=== PATIENT | female | born 1955 | race African-American/Black ===

== ENCOUNTER 2025-02-12 09:57 | Inpatient (IN) | payer MEDICARE, MEDICAID ==
[~2025-02-12] VITALS: Ht 167.6 cm; Wt 95.4 kg
--- NOTE | 2025-02-12 11:09 | ED.PDOC ---
GI ASSESSMENT HPI Comments 69 y/o F, with PMHx of HTN presents to the ED for CC of abdominal pain. Patient states, she has been experiencing epigastric abdominal pain that radiates down into her pelvic area [id number]. Patient reports, that she was seen at [facility] for SS [id number] ago and was told to have a UTI and a uterine fibroid. Patient relays, symptoms have persisted since last hospital visit. Patient describes abdominal pain as numbness and tingling. Patient denies flank pain, back pain, hematuria, nausea, vomiting, or diarrhea. No other symptoms or modifying factors are present at this time. 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 Family History Family History: Unknown Social History Smoker: Non-Smoker Alcohol: Denies ETOH Use Drugs: Denies Drug Use Lives In: Home Constitutional: denies: chills, diaphoresis, fatigue, fever, malaise, sweats, weakness, others EENTM: denies: blurred vision, double vision, ear bleeding, ear discharge, ear drainage, ear pain, ear ringing, eye pain, eye redness, hearing loss, mouth pain, mouth swelling, nasal discharge, nose bleeding, nose congestion, nose pain, photophobia, tearing, throat pain, throat swelling, voice changes, others Respiratory: denies: cough, hemoptysis, orthopnea, SOB at rest, shortness of breath, SOB with excertion, stridor, wheezing, others Cardiovascular: denies: chest pain, dizzy spells, diaphoresis, Dyspnea on exertion, edema, irregular heart beat, left arm pain, lightheadedness, palpitations, PND, syncope, others Gastrointestinal: reports: abdominal pain; denies: abdomen distended, blood streaked bowels, constipated, diarrhea, dysphagia, difficulty swallowing, hematemesis, melena, nausea, poor appetite, poor fluid intake, rectal bleeding, rectal pain, vomiting, others Genitourinary: denies: abnormal vagina bleeding, burning, dyspareunia, dysuria, flank pain, frequency, hematuria, incontinence, pain, , vagina discharge, urgency, others Neurological: denies: dizziness, fainting, headache, left sided numbness, left sided weakness, numbness, paresthesia, pre-existing deficit, right sided numbness, right sided weakness, seizure, speech problems, tingling, tremors, weakness, others Musculoskeletal: denies: back pain, gout, joint pain, joint swelling, muscle pain, muscle stiffness, neck pain, others Integumetry: denies: bruises, change in color, change in hair/nails, dryness, laceration, lesions, lumps, rash, wounds, others Allergic/Immunocompromised: denies: Difficulty Healing, Frequent Infections, Hives, Itching, others Hematologic/Lymphatic: denies: anemia, blood clots, easy bleeding, easy bruising, swollen glands, others Endocrine: denies: excessive hunger, excessive sweating, excessive thirst, excessive urination, flushing, intolerance to cold, intolerance to heat, unexplained weight gain, unexplained weight loss, others Psychiatric: denies: anxiety, bipolar disorder, depression, hopeless, panic disorder, schizophrenia, sleepless, suicidal, others All Other Systems: Reviewed and Negative Physical Exam General Appearance: Moderate Distress HEENT: Normal ENT Inspection, Pharynx Normal, TMs Normal Neck: Full Range of Motion, Non-Tender, Normal, Normal Inspection Respiratory: Chest Non-Tender, Lungs Clear, No Accessory Muscle Use, No R espiratory Distress, Normal Breath Sounds Cardiovascular: No Edema, No JVD, No Murmur, No Gallop, Normal Peripheral Pulses, Regular Rate/Rhythm Breast Exam: Deferred Gastrointestinal: Diffuse Genitalia: Deferred Pelvic: Deferred Rectal: Deferred Extremities: No calf tenderness, Normal capillary refill, Normal inspection, Normal range of motion, Non-tender, No pedal edema Musculoskeletal : Apperance: Normal Neurologic: Alert, 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 Was a procedure done?: No GI differential Dx Differential Diagnosis: Constipation, Diverticular disease, Esophagitis, Gastritis/PUD, Gastroenteritis, Electrolyte Imbalance, Food Poisoning, Bacterial, Viral X-Ray, Labs, Meds, VS Vital Signs Date Time Temp Pulse Resp B/P (MAP) Pulse Ox O2 Delivery O2 Flow Rate FiO2 02/12/25 10:14 80 02/12/25 10:01 98.1 80 18 138/71 100 98.1 Lab Test 02/12/25 11:22 Range/Units White Blood Count 12.0 H 4.4-10.8 10^3/uL Red Blood Count 3.99 L 4.0-5.20 10^6/uL Hemoglobin 12.0 L 12.2-16.2 g/dL Hematocrit 35.8 L 36.0-46.0 % Mean Corpuscular Volume 89.6 80.0-100.0 fL Mean Corpuscular Hemoglobin 30.0 28.0-32.0 pg Mean Corpuscular Hemoglobin Concent 33.5 32.0-36.0 g/dL Red Cell Distribution Width 14.4 H 11.8-14.3 % Platelet Count 559 H 140-450 10^3/uL Mean Platelet Volume 6.7 L 6.9-10.8 fL Neutrophils (%) (Auto) 65.5 37.0-80.0 % Lymphocytes (%) (Auto) 26.9 10.0-50.0 % Monocytes (%) (Auto) 6.0 0.0-12.0 % Eosinophils (%) (Auto) 1.1 0.0-7.0 % Basophils (%) (Auto) 0.5 0.0-2.0 % Neutrophils # (Auto) 7.8 1.6-8.6 10 ^3/uL Lymphocytes # (Auto) 3.2 0.4-5.4 10 ^3/uL Monocytes # (Auto) 0.7 0-1.3 10 ^3/uL Eosinophils # (Auto) 0.1 0-0.8 10 ^3/uL Basophils # (Auto) 0.1 0-0.2 10 ^3/uL Nucleated Red Blood Cells 0.1 % Sodium Level 140 136-145 mmol/L Potassium Level 3.1 L 3.5-5.1 mmol/L Chloride Level 102 98-107 mmol/L Carbon Dioxide Level 27 20-31 mmol/L Anion Gap 11 5-15 Blood Urea Nitrogen 9 9-23 mg/dL Creatinine 1.36 H 0.550-1.02 mg/dL Glomerular Filtration Rate Calc 42 >90 mL/min BUN/Creatinine Ratio 6.6 L 10.0-20.0 Serum Glucose 142 H 74-106 mg/dL Calcium Level 9.7 8.7-10.4 mg/dL Current Medications Medications (Trade) Dose Ordered Sig/Shiloh Route Start Time Stop Time Status Last Admin Ceftriaxone Sodium 50 ml @ 100 mls/hr ONCE ONCE IV 02/12/25 13:15 02/12/25 13:44 DC 02/12/25 13:47 Metronidazole 100 ml @ 100 mls/hr ONCE ONCE IV 02/12/25 13:15 02/12/25 14:14 DC 02/12/25 14:04 Sodium Chloride 1,000 ml @ 1,000 mls/hr Q1H ONCE IV 02/12/25 13:15 02/12/25 14:14 DC 02/12/25 13:38 Patient alert. Complaining of abdominal pain. Vitals stable. Answering questions. Abdomen is soft. No acute abdomen. Blood sugar elevated. WBC elevated. She was at [facility] recently. Possible colitis pain CT scan of the abdomen. Establish intravenous access. Was given fluids. Was given Rocephin. Was given Flagyl. Explained to the patient. Continue monitoring. [place] [id number] Ph: [phone] DIAGNOSTIC IMAGING Diagnostic Imaging Report : [id number] Signed PATIENT: JOHN FAULKNER ACCT: [id number] UNIT: [id number] : 1955 LOC: ER ROOM / BED: / AGE / SEX: 69 / F ADM STATUS: REG ER SERVICE 1111 ORDERING PHYSICIAN: JJ BRANCH MD PROCEDURE(s): CXRP - CHEST PORTABLE REASON: sob ORDER NUMBER(s): [id number], ACCESSION NUMBER(s): [id number] CHEST RADIOGRAPH Indication: sob Technique: Single frontal view of the chest was obtained COMPARISON: None FINDINGS: Lines and Tubes: None Lungs: Clear Pleura: No effusion. No pneumothorax. Cardiomediastinal contours: Unremarkable Bones: Unremarkable IMPRESSION: No acute disease. ATED BY: AC EID MD DICTATED DATE/TIME: 02/12/25 1208 SIGNED BY: AC EID MD SIGNED DATE/TIME: 02/12/25 1208 CC: [place] [id number] Ph: [phone] DIAGNOSTIC IMAGING Diagnostic Imaging Report : [id number] Signed PATIENT: JOHN FAULKNER ACCT: [id number] UNIT: [id number] : 1955 LOC: ER ROOM / BED: / AGE / SEX: 69 / F ADM STATUS: REG ER SERVICE ORDERING PHYSICIAN: JJ BRANCH MD PROCEDURE(s): ABPL - CT AB PEL WO CON-NO ORAL OR IV REASON: colitis ORDER NUMBER(s): [id number], ACCESSION NUMBER(s): [id number] Exam: CT CT AB PEL WO CON-NO ORAL OR IV History: colitis Comparison Study: None TECHNIQUE: Multidetector CT of the abdomen AND PELVIS without IV contrast. Axial, coronal and sagittal multiplanar reformats were obtained from the axial data set by the technologist. Radiation Dose Information: CT Dose: CTDI volume is 22.29 mGy. Dose-length product is 1193.6 mGy*cm FINDINGS: Bibasilar atelectasis. Partially visualized heart is unremarkable. Liver, spleen, gallbladder, pancreas and adrenal glands are unremarkable. 2.1 cm right renal cyst. Punctate nonobstructing right renal calculi., kidneys, ureters and urinary bladder unremarkable. Fibroid uterus with partially calcified and noncalcified fibroids. Stomach is unremarkable. Small bowel loops are unremarkable. Appendix is not definitely visualized. Colonic diverticulosis without diverticulitis. Small to moderate amount of fecal material within the colon. Minimal submucosal fatty infiltration of the ascending colon. No evidence of intraperitoneal free air or free fluid. No evidence of aortic aneurysm. Mild atherosclerotic calcification of the aorta and bilateral iliacs. No significant lymphadenopathy. Mild subcutaneous fat stranding of the right lateral hip. No evidence of acute osseous abnormalities. IMPRESSION: Mild submucosal fatty infiltration of the ascending colon which may be associated with patient's body habitus with colonic inflammatory bowel disease not completely excluded. Nonobstructing punctate right renal calculi. Small right renal cyst. Colonic diverticulosis without diverticulitis. Small to moderate amount of fecal material within the colon. Fibroid uterus. ATED BY: GEGE GAFFNEY DO DICTATED DATE/TIME: 02/12/251312 SIGNED BY: GEGE GAFFNEY DO SIGNED DATE/TIME: 02/12/251312 CC: Time of 1ST Reevaluation: 11:15 Reevaluation 1ST: Unchanged Patient Education/Counseling: Diagnosis, Treatment Family Education/Counseling: No Family Present SEPSIS Sepsis Screen Date sepsis recognized/suspect: Feb 12, 2025 Time Sepsis recognized/suspect: 1000 Recent Procedure: No On Antibiotic Therapy: No Respiratory Rate >20: No Heart Rate >90: No Temp<36 C (96.8 F) or >38.3 C: No SBP <90 or MAP <65 mmHG: No New Acute Mental Status Change: No Is the patient on CPAP, BIPAP,: No Physician Orders Electrocardigram (02/12/25 10:27) Chest Portable (02/12/25 11:11) Urinalysis (02/12/25 11:11) Ct Ab Pel Wo Con-No Oral Or Iv (02/12/25 12:28) Sodium Chloride 0.9% (02/12/25 13:15) Vital Signs Date Time Temp Pulse Resp B/P (MAP) Pulse Ox O2 Delivery O2 Flow Rate FiO2 02/12/25 10:14 80 02/12/25 10:01 98.1 80 18 138/71 100 98.1 Laboratory Tests Test 02/12/25 11:22 White Blood Count 12.0 10^3/uL (4.4-10.8) H Medications Medications Dose Ordered Sig/Shiloh Route Start Time Stop Time Status Last Admin Dose Admin Ceftriaxone Sodium 50 ml @ 100 mls/hr ONCE ONCE IV 02/12/25 13:15 02/12/25 13:44 DC 02/12/25 13:47 Metronidazole 100 ml @ 100 mls/hr ONCE ONCE IV 02/12/25 13:15 02/12/25 14:14 DC 02/12/25 14:04 Sodium Chloride 1,000 ml @ 1,000 mls/hr Q1H ONCE IV 02/12/25 13:15 02/12/25 14:14 DC 02/12/25 13:38 Departure 1 Departure Time of Disposition: 13:13 Impression: Primary Impression: Acute abdominal pain Additional Impression: Non-specific colitis Disposition: ADMITTED INPATIENT Admit to: Med Surg Condition: Guarded Critical Care Note Critical Care Time?: No Stability Stability form required: No Heart Score Heart Score: Heart Score Response (Comments) Value History N/A 0 EKG N/A 0 Age N/A 0 Risk Factors N/A 0 Troponin N/A 0 Total 0 I personally scribed for JJ BRANCH MD ([email or web address]) on 02/12/25 at 11:08. Electronically submitted by Evelyne Mccarthy ([email or web address]). I personally scribed for JJ BRANCH MD ([email or web address]) on 02/12/25 at 11:17. Electronically submitted by Evelyne Mccarthy ([email or web address]). I personally scribed for JJ BRANCH MD ([email or web address]) on 02/12/25 at 14:17. Electronically submitted by Evelyne Mccarthy ([email or web address]). I personally scribed for JJ BRANCH MD ([email or web address]) on 02/12/25 at 14:18. Electronically submitted by Evelyne Mccarthy ([email or web address]). JJ BRANCH MD Feb 12, 2025 11:08
[2025-02-12 11:55] LABS: Nucleated Red Blood Cells % 0.1 %
[2025-02-12 11:57] LABS: Hematocrit 35.8 % (36.0-46.0); Hemoglobin 12.0 g/dL (12.2-16.2); Mean Corpuscular Hemoglobin 30.0 pg (28.0-32.0); Mean Corpuscular Volume 89.6 fL (80.0-100.0)
[2025-02-12 11:59] LABS: Chloride 102 mmol/L (98-107); Sodium 140 mmol/L (136-145)
[2025-02-12 12:00] LABS: Anion Gap 11 (5-15); Carbon Dioxide 27 mmol/L (20-31)
[2025-02-12 12:01] LABS: Calcium 9.7 mg/dL (8.7-10.4); Potassium 3.1 mmol/L (3.5-5.1)
[2025-02-12 12:05] LABS: BUN/Creatinine Ratio 6.6 (10.0-20.0); Blood Urea Nitrogen 9 mg/dL (9-23)
[2025-02-12 12:06] LABS: Glucose 142 mg/dL (74-106)
--- NOTE | 2025-02-12 12:10 | DVH ---
CHEST RADIOGRAPH Indication: sob Technique: Single frontal view of the chest was obtained COMPARISON: None FINDINGS: Lines and Tubes: None Lungs: Clear Pleura: No effusion. No pneumothorax. Cardiomediastinal contours: Unremarkable Bones: Unremarkable IMPRESSION: No acute disease.
--- NOTE | 2025-02-12 13:15 | DVH ---
Exam: CT CT AB PEL WO CON-NO ORAL OR IV History: colitis Comparison Study: None TECHNIQUE: Multidetector CT of the abdomen AND PELVIS without IV contrast. Axial, coronal and sagitta l multiplanar reformats were obtained from the axial data set by the technologist. Radiation Dose Information: CT Dose: CTDI volume is 22.29 mGy. Dose-length product is 1193.6 mGy*cm FINDINGS: Bibasilar atelectasis. Partially visualized heart is unremarkable. Liver, spleen, gallbladder, pancreas and adrenal glands are unremarkable. 2.1 cm right renal cyst. Punctate nonobstructing right renal calculi., kidneys, ureters and urinary b ladder unremarkable. Fibroid uterus with partially calcified and noncalcified fibroids. Stomach is unremarkable. Small bowel loops are unremarkable. Appendix is not definitely visualized. Colonic diverticulosis without diverticulitis. Small to moderate amount of fecal material within the colon. Minimal submucosal fatty infiltration of the ascending colon. No evidence of intraperitoneal free air or free fluid. No evidence of aortic aneurysm. Mild atherosclerotic calcification of the aorta and bilateral iliacs . No significant lymphadenopathy. Mild subcutaneous fat stranding of the right lateral hip. No evidence of acute osseous abnormalities. IMPRESSION: Mild submucosal fatty infiltration of the ascending colon which may be associated with patient's body habitus with colonic inflammatory bowel disease not completely excluded. Nonobstructing punctate right renal calculi. Small right renal cyst. Colonic diverticulosis without diverticulitis. Small to moderate amount of fecal material within the colon. Fibroid uterus.
[2025-02-12] MEDS: SODIUM CHLORIDE 0.9% 1,000 ML IV ONE ×2 (13:38→15:12)
[2025-02-12] MEDS: cefTRIAXone 1GM/50ML D5W 50 ML IV ONE (13:47)
[2025-02-12] MEDS ORDERED: HYDROcodone-ACET 5/325MG TAB PO PRN (16:00)
[2025-02-12] MEDS ORDERED: DOCUSATE SOD 100 MG CAP PO PRN (16:00)
[2025-02-12] MEDS ORDERED: ACETAMINOPHEN 325 MG TAB PO PRN (16:00)
[2025-02-12] MEDS ORDERED: FOLI-119 PO (16:03)
[2025-02-12] MEDS ORDERED: SERT-289 PO (16:03)
[2025-02-12] MEDS ORDERED: ICOS1CAP PO (16:03)
[2025-02-12] MEDS ORDERED: SUVO1TAB4 PO (16:03)
[2025-02-12] MEDS ORDERED: METO-289 PO (16:03)
[2025-02-12] MEDS ORDERED: LISI10TA34 PO (16:03)
[2025-02-12] MEDS ORDERED: ONDA-188 PO (16:03)
[2025-02-12] MEDS ORDERED: NALO1TAB4 PO (16:04)
[2025-02-12] MEDS ORDERED: HYDR25TA5 PO (16:04)
[2025-02-12] MEDS ORDERED: HYDR-4072 PO (16:04)
[2025-02-12] MEDS ORDERED: ATOR20TA50 PO (16:04)
[2025-02-12] MEDS ORDERED: RIV15T PO (16:04)
[2025-02-12] MEDS ORDERED: CLON0.1T PO (16:04)
--- NOTE | 2025-02-12 16:22 | DVHHP2 ---
History of Present Illness Reason for Visit: Abdominal pain History of Present Illness Leeann Alvaraod is a 69-year-old female with past medical history of hypertension, hyperlipidemia, diabetes, PE, [place], and uterine fibroids, who came to the hospital with complaints of abdominal pain. Patient states her pain began over a month ago. She went to [facility] and was admitted there for 4 days. That is when she was told that she has uterine fibroids. She states since she has been discharged her pain, numbness, and tingling has worsened. She states her pain is an epigastric burning pain, along with numbness and tingling that starts in her abdomen and goes all the way to her toes, along with associated bloating. She states the numbness is so severe that she does not know when she needs to use the restroom and has been using diapers at home. Cardiovascular: HTN, [place], hyperipidemia Pulmonary: Pulmonary embolus Endocrine: Diabetes Past Surgical History: Appendectomy, Other (right knee), Tonsillectomy Smoke: <1 pack per day ALCOHOL: none Drugs: None Lives: with Family Domestic Violence: Neg Review of Systems Constitutional: No: Fever, Chills, Sweats, Weakness, Malaise, Other Eyes: No: Pain, Vision change, Conjunctivae inflammation, Eyelid inflammation, Other, Redness ENT: No: Ear pain, Ear discharge, Nose pain, Nose discharge, Nose congestion, Mouth pain, Mouth swelling, Throat pain, Throat swelling, Other Respiratory: No: Cough, Dry, Shortness of breath, SOB with excertion, Wheezing, Hemoptysis, Pleuritic Pain, Sputum, Wheezing, Other Cardiovascular: No: Chest Pain, Palpitations, Orthopnea, Paroxysmal Noc. Dyspnea, Edema, Lt Headedness, Other Gastrointestinal: Abdominal Pain; No: Nausea, Vomiting, Diarrhea, Constipation, Melena, Hematochezia, Other Genitourinary: No Dysuria, No Frequency, No Incontinence, No Hematuria, No Retention, No Other Musculoskeletal: No: other, neck pain, shoulder pain, arm pain, back pain, hand pain, leg pain, foot pain Skin: No: Rash, Lesions, Jaundice, Bruising, Other Neurological: Numbness (from abdomen down to toes); No: Weakness, Incoordination, Change in speech, Confusion, Seizures, Other Allergies: Coded Allergies: Morphine (Verified Allergy, Unknown, 8/18/25) Medications Current Medications Medications Dose Ordered Sig/Shiloh Route Start Time Stop Time Status Last Admin Dose Admin Acetaminophen/ Hydrocodone Bitart 1 tab Q4HP PRN PO 02/12/25 16:00 Ondansetron HCl 4 mg Q4HP PRN IV 02/12/25 16:00 Docusate Sodium 100 mg BIDPRN PRN PO 02/12/25 16:00 Acetaminophen 650 mg Q6HP PRN PO 02/12/25 16:00 Ceftriaxone Sodium 50 ml @ 100 mls/hr DAILY@09 IV 02/13/25 09:00 Metronidazole 100 ml @ 100 mls/hr Q8HR IV 02/12/25 22:00 Hydromorphone HCl 0.5 mg Q4HPRN PRN IV 02/12/25 16:00 Atorvastatin Calcium 20 mg HS PO 02/12/25 22:00 UNV Clonidine HCl 0.1 mg TID PO 02/12/25 22:00 UNV Hydrochlorothiazide 25 mg DAILY PO 02/13/25 10:00 UNV Acetaminophen/ Hydrocodone Bitart 1 tab QIDP PRN PO 02/12/25 16:00 UNV Metoprolol Succinate 50 mg DAILY PO 02/13/25 10:00 UNV Rivaroxaban 15 mg DAILY PO 02/13/25 10:00 UNV Sertraline HCl 50 mg DAILY PO 02/13/25 10:00 UNV Patient Own Medication 2 cap BID PO 02/12/25 22:00 UNV Patient Own Medication 1 tab DAILY PO 02/13/25 10:00 UNV Patient Own Medication 1 tab DAILY PO 02/13/25 10:00 UNV Patient Own Medication 1 tab DAILY PO 02/13/25 10:00 UNV Patient Own Medication 1 tab QHSP PRN PO 02/12/25 16:00 UNV Exam Vital Signs Vital Signs Date Time Temp Pulse Resp B/P (MAP) Pulse Ox O2 Delivery O2 Flow Rate FiO2 02/12/25 15:35 98.1 82 16 107/65 (79) 98 98.1 02/12/25 13:20 Room Air* 0 21 General Appearance: Alert, Oriented X3, Cooperative, mild distress HEENT: Atraumatic, PERRLA Respiratory: Clear to auscultation, Normal air movement Cardiovascular: Regular rate, Normal S1, Normal S2, No murmurs Abdominal: Normal bowel sounds, Soft, Other (C/O epigastric pain) Extremities: No clubbing, No cyanosis, No edema, Normal pulses Skin: No rashes, No breakdown, No significant lesion Neuro: Normal gait, Normal speech, Strength at 5/5 X4 ext Psych/Mental Status: Mental status NL, Mood NL Labs/Xrays Labs Test 02/12/25 11:22 Range/Units White Blood Count 12.0 H 4.4-10.8 10^3/uL Red Blood Count 3.99 L 4.0-5.20 10^6/uL Hemoglobin 12.0 L 12.2-16.2 g/dL Hematocrit 35.8 L 36.0-46.0 % Mean Corpuscular Volume 89.6 80.0-100.0 fL Mean Corpuscular Hemoglobin 30.0 28.0-32.0 pg Mean Corpuscular Hemoglobin Concent 33.5 32.0-36.0 g/dL Red Cell Distribution Width 14.4 H 11.8-14.3 % Platelet Count 559 H 140-450 10^3/uL Mean Platelet Volume 6.7 L 6.9-10.8 fL Neutrophils (%) (Auto) 65.5 37.0-80.0 % Lymphocytes (%) (Auto) 26.9 10.0-50.0 % Monocytes (%) (Auto) 6.0 0.0-12.0 % Eosinophils (%) (Auto) 1.1 0.0-7.0 % Basophils (%) (Auto) 0.5 0.0-2.0 % Neutrophils # (Auto) 7.8 1.6-8.6 10 ^3/uL Lymphocytes # (Auto) 3.2 0.4-5.4 10 ^3/uL Monocytes # (Auto) 0.7 0-1.3 10 ^3/uL Eosinophils # (Auto) 0.1 0-0.8 10 ^3/uL Basophils # (Auto) 0.1 0-0.2 10 ^3/uL Nucleated Red Blood Cells 0.1 % Sodium Level 140 136-145 mmol/L Potassium Level 3.1 L 3.5-5.1 mmol/L Chloride Level 102 98-107 mmol/L Carbon Dioxide Level 27 20-31 mmol/L Anion Gap 11 5-15 Blood Urea Nitrogen 9 9-23 mg/dL Creatinine 1.36 H 0.550-1.02 mg/dL Glomerular Filtration Rate Calc 42 >90 mL/min BUN/Creatinine Ratio 6.6 L 10.0-20.0 Serum Glucose 142 H 74-106 mg/dL Calcium Level 9.7 8.7-10.4 mg/dL Exam: CT CT AB PEL WO CON-NO ORAL OR IV FINDINGS: Bibasilar atelectasis. Partially visualized heart is unremarkable. Liver, spleen, gallbladder, pancreas and adrenal glands are unremarkable. 2.1 cm right renal cyst. Punctate nonobstructing right renal calculi., kidneys, ureters and urinary bladder unremarkable. Fibroid uterus with partially calcified and noncalcified fibroids. Stomach is unremarkable. Small bowel loops are unremarkable. Appendix is not definitely visualized. Colonic diverticulosis without diverticulitis. Small to moderate amount of fecal material within the colon. Minimal submucosal fatty infiltration of the ascending colon. No evidence of intraperitoneal free air or free fluid. No evidence of aortic aneurysm. Mild atherosclerotic calcification of the aorta and bilateral iliacs. No significant lymphadenopathy. Mild subcutaneous fat stranding of the right lateral hip. No evidence of acute osseous abnormalities. IMPRESSION: Mild submucosal fatty infiltration of the ascending colon which may be associated with patient's body habitus with colonic inflammatory bowel disease not completely excluded. Nonobstructing punctate right renal calculi. Small right renal cyst. Colonic diverticulosis without diverticulitis. Small to moderate amount of fecal material within the colon. Fibroid uterus. CHEST RADIOGRAPH FINDINGS: Lines and Tubes: None Lungs: Clear Pleura: No effusion. No pneumothorax. Cardiomediastinal contours: Unremarkable Bones: Unremarkable IMPRESSION: No acute disease. SEPSIS Sepsis Screen Date sepsis recognized/suspect: Feb 12, 2025 Time Sepsis recognized/suspect: 1320 Recent Procedure: No On Antibiotic Therapy: No Respiratory Rate >20: No Heart Rate >90: No Temp<36 C (96.8 F) or >38.3 C: No SBP <90 or MAP <65 mmHG: No New Acute Mental Status Change: No Is the patient on CPAP, BIPAP,: No Physician Orders Electrocardigram (02/12/25 10:27) Chest Portable (02/12/25 11:11) Urinalysis (02/12/25 11:11) Ct Ab Pel Wo Con-No Oral Or Iv (02/12/25 12:28) Sodium Chloride 0.9% (02/12/25 13:15) Admit (02/12/25 15:46) Code Status (02/12/25 15:46) Hydrocodone-Acet 5/325mg Tab (Pitts 5/32 (02/12/25 16:00) Ondansetron Hcl (Zofran) (02/12/25 16:00) Docusate Sodium Capsule (Colace Capsule) (02/12/25 16:00) Complete Blood Count (02/13/25 04:00) Comprehensive Metabolic Panel (02/13/25 04:00) Cardiac Diet-2gna,Lofat,Lochol (02/12/25 Dinner) Condition: Serious (02/12/25 15:46) Acetaminophen Tablet (Tylenol Tablet) (02/12/25 16:00) * Gi [facility] Teacher Resource (02/12/25 15:46) Ceftriaxone 1gm/50ml D5w (Rocephin) (02/13/25 09:00) Metronidazole 500mg/100ml (Flagyl 500mg/ (02/12/25 22:00) Hydromorphone Injection (Dilaudid Inject (02/12/25 16:00) Atorvastatin (Lipitor) (02/12/25 22:00) Clonidine Hcl Tablet (Catapres Tablet) (02/12/25 22:00) Hydrochlorothiazide Tablet (Hydrochlorot (02/13/25 10:00) Hydrocodone-Acet 10/325mg Tab (Pitts 10/ (02/12/25 16:00) Metoprolol Xl Succinate (Toprol Xl) (02/13/25 10:00) Rivaroxaban Tablet (Xarelto Tablet) (02/13/25 10:00) Sertraline Hcl (Zoloft) (02/13/25 10:00) (Nf) Epa Ethyl Vania (Vascepa) (02/12/25 22:00) (Nf) Folic Acid (02/13/25 10:00) (Nf) Lisinopril (02/13/25 10:00) (Nf) Naloxegol Oxalate (Movantik) (02/13/25 10:00) (Nf) Suvorexant (Belsomra) (02/12/25 16:00) Vital Signs Date Time Temp Pulse Resp B/P (MAP) Pulse Ox O2 Delivery O2 Flow Rate FiO2 02/12/25 15:35 98.1 82 16 107/65 (79) 98 98.1 02/12/25 13:20 Room Air* 0 21 02/12/25 10:14 80 02/12/25 10:01 98.1 80 18 138/71 100 98.1 Laboratory Tests Test 02/12/25 11:22 White Blood Count 12.0 10^3/uL (4.4-10.8) H Medications Medications Dose Ordered Sig/Shiloh Route Start Time Stop Time Status Last Admin Dose Admin Ceftriaxone Sodium 50 ml @ 100 mls/hr ONCE ONCE IV 02/12/25 13:15 02/12/25 13:44 DC 02/12/25 13:47 100 MLS/HR Metronidazole 100 ml @ 100 mls/hr ONCE ONCE IV 02/12/25 13:15 02/12/25 14:14 DC 02/12/25 14:04 100 MLS/HR Sodium Chloride 1,000 ml @ 150 mls/hr Q6H40M ONCE IV 02/12/25 13:15 02/12/25 19:54 02/12/25 15:12 150 MLS/HR Sodium Chloride 1,000 ml @ 1,000 mls/hr Q1H ONCE IV 02/12/25 13:15 02/12/25 14:14 DC 02/12/25 13:38 1,000 MLS/HR Assessment/Plan Assessment/Plan Assessment: Acute abdominal pain, Intractable abdominal pain, Diverticulosis, Fibroid uterus, Renal calculi, Tobacco dependance, Hypertension, Hyperlipidemia, Diabetes, Plan: Admit to Med-Surg, GI consult, Pain management, IV hydration, Home medications reconciled, Plan discussed with: Patient My Orders Orders - MARY JANE JOHNSON BIOLOGIST AIDE Procedure Category Date Status Time Admit ADMIT 02/12/25 Transmitted 15:46 Code Status CODE 02/12/25 Transmitted 15:46 Hydrocodone-Acet PHA 02/12/25 In Process 5/325mg Tab (Pitts 16:00 Ondansetron Hcl PHA 02/12/25 In Process (Zofran) 16:00 Docusate Sodium PHA 02/12/25 In Process Capsule (Colace 16:00 Complete Blood Count LAB 02/13/25 Verified 04:00 Comprehensive LAB 02/13/25 Verified Metabolic Panel 04:00 Cardiac DIET 02/12/25 Transmitted Diet-2gna,Lofat,Lochol Dinner Condition: Serious LEO 02/12/25 In Process 15:46 Acetaminophen Tablet PHA 02/12/25 In Process (Tylenol Tablet) 16:00 * [facility] Teacher Resource CONS 02/12/25 Transmitted 15:46 Ceftriaxone 1gm/50ml PHA 02/13/25 In Process D5w (Rocephin) 09:00 Metronidazole PHA 02/12/25 In Process 500mg/100ml (Flagyl 22:00 Hydromorphone PHA 02/12/25 In Process Injection (Dilaudid 16:00 Atorvastatin (Lipitor) PHA 02/12/25 Logged 22:00 Clonidine Hcl Tablet PHA 02/12/25 Logged (Catapres Tablet) 22:00 Hydrochlorothiazide PHA 02/13/25 Logged Tablet (Hydrochlorot 10:00 Hydrocodone-Acet PHA 02/12/25 Logged 10/325mg Tab (Pitts 16:00 Metoprolol Xl PHA 02/13/25 Logged Succinate (Toprol Xl) 10:00 Rivaroxaban Tablet PHA 02/13/25 Logged (Xarelto Tablet) 10:00 Sertraline Hcl PHA 02/13/25 Logged (Zoloft) 10:00 (Nf) Epa Ethyl Vania PHA 02/12/25 Logged (Vascepa) 22:00 (Nf) Folic Acid PHA 02/13/25 Logged 10:00 (Nf) Lisinopril PHA 02/13/25 Logged 10:00 (Nf) Naloxegol PHA 02/13/25 Logged Oxalate (Movantik) 10:00 (Nf) Suvorexant PHA 02/12/25 Logged (Belsomra) 16:00 Date of Service: Feb 12, 2025 Billing Provider: MARY JANE JOHNSON Common Visit Codes: [id number] INP/OBS CARE (MOD) MARY JANE JOHNSON Feb 12, 2025 16:22
[2025-02-12 17:32] VITALS: BP 123/62; PULSE 82; PULSE 86; RESP 18; RESP 20; TEMP 98.2; O2SAT 100; O2SAT 98
[2025-02-12 17:33] VITALS: BP 123/62; PULSE 82; RESP 20; TEMP 98.2; O2SAT 100
[2025-02-12] MEDS: POTASSIUM EFFERVESENT TAB 25 MEQ PO ONE (18:09)
[2025-02-12] MEDS: HYDROmorphone HCL 2 MG/ML VL/or syr IV PRN (18:10)
[2025-02-12 19:16] LABS: Urine Protein, UAD Negative (Negative)
[2025-02-12] MEDS: ATORVASTATIN 20 MG TAB PO SCH (21:02)
[2025-02-12] MEDS: BELSOMRA 20 MG PO SCH (21:10)
[2025-02-12] MEDS: VASCEPA 1 GM PO SCH (21:11)
[2025-02-12 22:00] VITALS: BP 135/73; PULSE 89; RESP 18; TEMP 98.7; O2SAT 98
[2025-02-13] VITALS (7 sets, daily range): BP systolic 106–134; BP diastolic 5–80; PULSE 74–97; RESP 16–18; TEMP 96.5–98.9; O2SAT 94–100
[2025-02-13] MEDS: hydroCHLOROthiazide 25 MG TAB PO SCH (09:40)
[2025-02-13] MEDS: SERTRALINE HCL 50 MG TAB PO SCH (09:40)
[2025-02-13] MEDS: FOLIC ACID 1 MG TAB PO SCH (09:40)
[2025-02-13] MEDS: cefTRIAXone 1GM/50ML D5W 50 ML IV SCH (09:40)
[2025-02-13] MEDS: RIVAROXABAN 15 MG TAB PO SCH (09:40)
[2025-02-13] MEDS: LISINOPRIL 5 MG TAB PO SCH (10:00)
[2025-02-13] MEDS: MOVANTIK 25MG TABLET PO SCH (10:00)
[2025-02-13] MEDS: METOPROLOL SUCCINATE XL 50 MG TAB PO SCH (10:00)
[2025-02-13 10:30] LABS: Nucleated Red Blood Cells % 0.1 %
[2025-02-13 10:33] LABS: Hematocrit 33.7 % (36.0-46.0); Hemoglobin 11.3 g/dL (12.2-16.2); Mean Corpuscular Hemoglobin 30.4 pg (28.0-32.0); Mean Corpuscular Volume 90.7 fL (80.0-100.0)
[2025-02-13 10:45] LABS: Alanine Aminotransferase 13 U/L (7-40); Anion Gap 10 (5-15); Calcium 9.2 mg/dL (8.7-10.4); Carbon Dioxide 27 mmol/L (20-31); Chloride 104 mmol/L (98-107); Sodium 141 mmol/L (136-145); Total Protein 6.4 g/dL (5.7-8.2)
[2025-02-13 10:46] LABS: Albumin 4.4 g/dL (3.2-4.8); BUN/Creatinine Ratio 7.6 (10.0-20.0); Bilirubin, Total 0.4 mg/dL (0.2-1.0)
[2025-02-13 10:47] LABS: Alkaline Phosphatase 118 U/L (46-116); Blood Urea Nitrogen 8 mg/dL (9-23); Glucose 121 mg/dL (74-106); Potassium 3.2 mmol/L (3.5-5.1)
[2025-02-13] MEDS: HYDROcodone-ACET 10/325MG TAB PO PRN (13:32)
--- NOTE | 2025-02-13 13:37 | DVH ---
CT OF THE THORACIC SPINE WITHOUT CONTRAST HISTORY: descending neuropathy Dose: CTDI: 32.42. DLP: 1296.95 COMPARISON: 02/09/2024 TECHNIQUE: Axial images through the thoracic spine were obtained without contrast. Coronal and sagitt al reformats were obtained. One or more of the following radiation dose reduction techniques were use d for this examination: automated exposure control, adjustment of the mA and/or kV according to patie nt size, use of iterative reconstruction technique. FINDINGS: 12 rib-bearing thoracic type vertebrae. Mild straightening of the thoracic kyphosis. Vertebral body heights are relatively maintained. No evidence of acute traumatic fractures or spondylolisthesis. Dif fuse demineralization. Multilevel minimal posterior disc bulges without significant spinal canal or neural foramina stenosis . The paraspinal muscles unremarkable. Mild gastric wall thickening which may be due to inadequate distention. 1.6 cm right renal cyst. Punc jeter nonobstructing right renal calculi. IMPRESSION: No evidence of acute traumatic fractures or spondylolisthesis. No significant spinal canal or neural foramina stenosis. If symptoms persist, consider MRI for further evaluation.
--- NOTE | 2025-02-13 13:45 | DVHINCON2 ---
GI Consult Consult Note GI consult note Date of Consultation: 02/13/2025 Chief Complaint: Acute abdominal pain Referring Physician: [place] PERSAUD H&P: 69-year-old female with past medical history of hypertension, hyperlipidemia, diabetes, PE, [place] and uterine fibroids was admitted to the hospital with complains of abdominal pain, mostly in the epigastric area, and also having radiating numbness and tingling to her suprapubic area and rectal region also. Patient presented with similar symptoms to [place] and it was admitted there also. Patient admits to having bowel incontinence a month ago which has improved at this time. Nausea and vomiting two weeks ago, none at this time. No hematemesis. No EGD or colonoscopy in past. Patient has bulge jig disc in her neck. And history of fibromyalgia Past Medical History: HTN, [place], hyperlipidemia, PE, DM, fibromyalgia Past Surgical History: Appendectomy, tonsillectomy, right knee surgery Social History: + smoking, denies drinking ETOH and use of illegal drugs. Family History: Noncontributory Review of Systems: Constitutional: no fever, chill, weight loss HEENT: no eye pain, no hearing loss, no oral lesion, no scleral icterus Heart: no chest pain, no chest pressure Lung: no cough, no dyspnea with exertion Abdomen: see HPI Physical exam: General: NAD, AAOX3 Chest: lung sequeira clear to auscultation Heart: RRR, no murmur Abdomen: Mild epigastric tenderness to palpation, +BS Labs: Labs Test 02/13/25 13:15 02/13/25 10:10 02/12/25 18:00 Range/Units White Blood Count 11.9 H 4.4-10.8 10^3/uL Red Blood Count 3.72 L 4.0-5.20 10^6/uL Hemoglobin 11.3 L 12.2-16.2 g/dL Hematocrit 33.7 L 36.0-46.0 % Mean Corpuscular Volume 90.7 80.0-100.0 fL Mean Corpuscular Hemoglobin 30.4 28.0-32.0 pg Mean Corpuscular Hemoglobin Concent 33.5 32.0-36.0 g/dL Red Cell Distribution Width 14.3 11.8-14.3 % Platelet Count 460 H 140-450 10^3/uL Mean Platelet Volume 6.5 L 6.9-10.8 fL Neutrophils (%) (Auto) 66.7 37.0-80.0 % Lymphocytes (%) (Auto) 24.3 10.0-50.0 % Monocytes (%) (Auto) 6.4 0.0-12.0 % Eosinophils (%) (Auto) 1.5 0.0-7.0 % Basophils (%) (Auto) 1.1 0.0-2.0 % Neutrophils # (Auto) 7.9 1.6-8.6 10 ^3/uL Lymphocytes # (Auto) 2.9 0.4-5.4 10 ^3/uL Monocytes # (Auto) 0.8 0-1.3 10 ^3/uL Eosinophils # (Auto) 0.2 0-0.8 10 ^3/uL Basophils # (Auto) 0.1 0-0.2 10 ^3/uL Nucleated Red Blood Cells 0.1 % Sodium Level 141 136-145 mmol/L Potassium Level 3.2 L 3.5-5.1 mmol/L Chloride Level 104 98-107 mmol/L Carbon Dioxide Level 27 20-31 mmol/L Anion Gap 10 5-15 Blood Urea Nitrogen 8 L 9-23 mg/dL Creatinine 1.05 H 0.550-1.02 mg/dL Glomerular Filtration Rate Calc 58 >90 mL/min BUN/Creatinine Ratio 7.6 L 10.0-20.0 Serum Glucose 121 H 74-106 mg/dL Hemoglobin A1c 5.4 <5.7 % A1C Calcium Level 9.2 8.7-10.4 mg/dL Total Bilirubin 0.4 0.2-1.0 mg/dL Aspartate Amino Transferase (AST) 32 13-40 U/L Alanine Aminotransferase (ALT) 13 7-40 U/L Alkaline Phosphatase 118 H 46-116 U/L Total Protein 6.4 5.7-8.2 g/dL Albumin 4.4 3.2-4.8 g/dL Thyroid Stimulating Hormone (TSH) 2.91 0.55-4.78 uIU/mL Urine Color Light-yellow Yellow Urine Clarity Turbid H Clear Urine pH 5.0 5.0-9.0 Urine Specific Termo 1.014 1.001-1.035 Urine Protein Negative Negative Urine Ketones Negative Negative Urine Blood Negative Negative /uL Urine Nitrite Negative Negative Urine Bilirubin Negative Negative Urine Urobilinogen Normal Negative mg/dL Urine Leukocyte Esterase Trace Negative /uL Urine RBC 1 0 - 4 /hpf Urine Microscopic WBC 4 0-5 /HPF Urine Squamous Epithelial Cells Few <5 /hpf Urine Bacteria Few H None Seen /hpf Urine Hyaline Casts Mod 0 - 2 /lpf Urine Glucose Normal Normal mg/dL Microbiology Date/Time Source Procedure Growth Status 02/12/25 18:30 Nose MRSA Screen - Final Methicillin Resistant S.aureus Complete Imaging: CT abdomen pelvis IMPRESSION: Mild submucosal fatty infiltration of the ascending colon which may be associated with patient's body habitus with colonic inflammatory bowel disease not completely excluded. Nonobstructing punctate right renal calculi. Small right renal cyst. Colonic diverticulosis without diverticulitis. Small to moderate amount of fecal material within the colon. Fibroid uterus. Assessment: Abdominal pain Abdominal CT findings Colonic diverticulosis Fibroid uterus Plan: Discussed with Dr. Serrano IBD panel machine operator labs We will continue to monitor patient Possible outpatient follow-up recommended for elective GI procedures Discussed plan with patient and RN Thank you for this consult Date of Service: Feb 13, 2025 Billing Provider: MARILY BOLANOS Common Visit Codes: CONSULT ONLY Consultation Codes: [id number] CONSULT <45MIN, [id number] CONSULT <60MIN MARILY BOLANOS Feb 13, 2025 13:44
[2025-02-13] MEDS: HYDROmorphone HCL 2 MG/ML VL/or syr IV PRN (16:28)
--- NOTE | 2025-02-13 17:01 | DVHPNRES ---
Progress Note Date Seen: Feb 13, 2025 Resident Creating Document: AGUS VIDAL Medical Necessity Reason Pt with a Central, PICC or Fol: No Subjective Review of Systems The is a 69-year-old female with a history of hypertension, hyperlipidemia, diabetes mellitus, pulmonary embolism (PE), myocardial infarction (VA), fibromyalgia, and uterine fibroids. She presents with abdominal pain, primarily in the epigastric region, accompanied by radiating numbness and tingling to the suprapubic and rectal areas. Patient reports that her pain began over a month ago. She was previously admitted to [facility] for four days, during which she was diagnosed with uterine fibroids. Since her discharge, she has experienced worsening symptoms, including burning epigastric pain and progressive numbness and tingling that radiates from her abdomen down to her toes. She also notes persistent bloating. The numbness has become so severe that she is unable to sense when she needs to use the restroom, leading her to rely on adult diapers at home. She reports a prior episode of bowel incontinence one month ago, which has since resolved. She had nausea and vomiting two weeks ago, currently resolved. No hematemesis. She has not had prior EGD or colonoscopy. She also has a bulging disc in her neck. Past medical history: HTN, VA, hyperipidemia, Pulmonary embolus, Diabetes Past surgical history: Appendectomy, Other (right knee), Tonsillectomy Smoke: <1 pack per day ALCOHOL: none Drugs: None Lives: with Family Domestic Violence: Neg Patient seen and examined at bedside. Patient is alert and oriented to time, place person and responding to all questions. Eyes: No Pain, No Vision change, No Conjunctivae inflammation, No Eyelid inflammation, No Other, No Redness ENT: No Ear pain, No Ear discharge, No Nose pain, No Nose discharge, No Nose congestion, No Mouth pain, No Mouth swelling, No Throat pain, No Throat swelling, No Other Cardiovascular: No Chest Pain, No Palpitations, No Orthopnea, No Paroxysmal No Dyspnea, No Edema, No Lt Headedness, No Other Respiratory: No Cough, No Dry, No Shortness of breath, No SOB with exertion, No Wheezing, No Hemoptysis, No Pleuritic Pain, No Sputum, No Other Gastrointestinal: No Nausea, No Vomiting, Abdominal Pain, Diarrhea, No Constipation, No Melena, No Hematochezia, No Other Genitourinary: No Dysuria, No Frequency, No Incontinence, No Hematuria, No Retention, No Other Musculoskeletal: No other, No neck pain, No shoulder pain, No arm pain, No back pain, No hand pain, No leg pain, No foot pain Skin: No Rash, No Lesions, No Jaundice, No Bruising, No Other Neurological: Numbness (from abdomen down to toes); No: Weakness, Incoordination, Change in speech, Confusion, Seizures, Other Allergies: Coded Allergies: Morphine (Verified Allergy, Unknown, 02/12/25) Objective vital signs Vital Sign Date Time Temp Pulse Resp B/P (MAP) Pulse Ox O2 Delivery O2 Flow Rate FiO2 02/13/25 16:28 97 17 130/70 02/13/25 13:00 98.2 100 98.2 02/13/25 07:55 Room Air* 0 21 Total Intake and Output 02/12/25 02/12/25 02/13/25 15:00 23:00 07:00 Intake Total 240 ml Balance 240 ml medications Current Medications Medications Dose Ordered Sig/Shiloh Route Start Time Stop Time Status Last Admin Dose Admin Ondansetron HCl 4 mg Q4HP PRN IV 02/12/25 16:00 Docusate Sodium 100 mg BIDPRN PRN PO 02/12/25 16:00 Acetaminophen 650 mg Q6HP PRN PO 02/12/25 16:00 Ceftriaxone Sodium 50 ml @ 100 mls/hr DAILY@09 IV 02/13/25 09:00 02/13/25 09:40 100 MLS/HR Metronidazole 100 ml @ 100 mls/hr Q8HR IV 02/12/25 22:00 02/13/25 13:31 100 MLS/HR Atorvastatin Calcium 20 mg HS PO 02/12/25 22:00 02/12/25 21:02 20 MG Clonidine HCl 0.1 mg TID PO 02/12/25 22:00 02/12/25 21:09 0.1 MG Hydrochlorothiazide 25 mg DAILY PO 02/13/25 10:00 02/13/25 09:40 25 MG Acetaminophen/ Hydrocodone Bitart 1 tab QIDP PRN PO 02/12/25 16:00 02/13/25 13:32 1 TAB Metoprolol Succinate 50 mg DAILY PO 02/13/25 10:00 Rivaroxaban 15 mg DAILY PO 02/13/25 10:00 02/13/25 09:40 15 MG Sertraline HCl 50 mg DAILY PO 02/13/25 10:00 02/13/25 09:40 50 MG Patient Own Medication 2 cap BID PO 02/12/25 22:00 Folic Acid 1 mg DAILY PO 02/13/25 10:00 02/13/25 09:40 1 MG Lisinopril 10 mg DAILY PO 02/13/25 10:00 Patient Own Medication 1 tab DAILY PO 02/13/25 10:00 Patient Own Medication 1 tab HS PO 02/12/25 22:00 Hydromorphone HCl 0.25 mg Q4HPRN PRN IV 02/13/25 15:45 02/13/25 16:28 0.25 MG Mupirocin 1 applic BID EACHNOSTRI 02/13/25 22:00 02/17/25 22:00 Examination General Appearance: Alert, Oriented X3, Cooperative, mild distress HEENT: Atraumatic, PERRLA Respiratory: Clear to auscultation, Normal air movement Cardiovascular: Regular rate, Normal S1, Normal S2, No murmurs Abdominal: Normal bowel sounds, Soft, Other (C/O epigastric pain) Extremities: No clubbing, No cyanosis, No edema, Normal pulses Skin: No rashes, No breakdown, No significant lesion Neuro: Normal gait, Normal speech, Strength at 5/5 X4 ext Psych/Mental Status: Mental status NL, Mood NL laboratory and microbiology Laboratory Tests 02/13/25 10:10 Test 02/13/25 10:10 Range/Units Serum Glucose 121 H 74-106 mg/dL Microbiology Date/Time Source Procedure Growth Status 02/12/25 18:30 Nose MRSA Screen - Final Methicillin Resistant S.aureus Complete Labs and/or images reviewed: Labs reviewed by me, Image(s) reviewed by me Problem List/Assessment/Plan Problem List/Assessment/Plan # Acute intractable abdominal pain # Diverticulosis # Fibroid uterus # Renal calculi -IV fluid -Abdomen/Pelvis CT: Mild submucosal fatty infiltration of the ascending colon which may be associated with patient's body habitus with colonic inflammatory bowel disease not completely excluded. Nonobstructing punctate right renal calculi. Small right renal cyst. Colonic diverticulosis without diverticulitis. Small to moderate amount of fecal material within the colon. Fibroid uterus. -Thoracic Spine CT: No evidence of acute traumatic fractures or spondylolisthesis. No significant spinal canal or neural foramina stenosis. If symptoms persist, consider MRI for further evaluation. 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 -recommend cessation # Hyperlipidemia -Rivaroxaban # Type 2 diabetes mellitus -A1C # MRSA Screen Final result: Methicillin Resistant S.aureus DNA detected. -Mupirocin DVT prophylaxis: Xarelto 15mg Goals of care: Full code, discussed for >16 minutes on 02/13/25 Plan discussed with patient Plan discussed with Dr. Nelson Plan discussed with: Patient Date of Service: Feb 13, 2025 Billing Provider: TAMMI NELSON MD Common Visit Codes: [id number] INP/OBS CARE(HIGH) Secondary Visit Codes: [id number] CARE PLAN 30 MINUTES AGUS VIDAL RESIDENT Feb 13, 2025 17:01 ALONSO MAGDALENO RESIDENT Feb 14, 2025 09:54 TAMMI NELSON MD Feb 18, 2025 18:53
[2025-02-13] MEDS: MUPIROCIN 2% OINT 15gm or 22gm FOR MRSA NARES EACHNOSTRI SCH (21:43)
[2025-02-14] VITALS (8 sets, daily range): BP systolic 96–118; BP diastolic 56–77; PULSE 72–84; RESP 17–21; TEMP 97.5–98.4; O2SAT 91–100
--- NOTE | 2025-02-14 10:18 | DVH ---
EXAM: CT LS SPINE WO CONTRAST HISTORY: stenosis, subacute onset of descendin numbness weakness COMPARISON: none CTDIvol 24.64 mGy, DLP 877.89 mGy*cm. TECHNIQUE: Multiple axial CT images of the spine were obtained using bone algorithm. Axial and cobos l reformatting was done. Bone and soft tissue windows were reviewed. FINDINGS: No evidence of definite acute fracture, spinal dislocation, or significant appearing acute subluxatio n is seen. Suggestion of dakr-cp-alvuagxz canal stenosis at L3-L4. IMPRESSION: No definite CT evidence of acute fracture or dislocation of the bony lumbar spine. Suggestion of uosr-ar-iisjijzh canal stenosis at L3-L4.
[2025-02-14 10:46] LABS: Anion Gap 10 (5-15); Carbon Dioxide 28 mmol/L (20-31); Chloride 104 mmol/L (98-107); Hematocrit 31.3 % (36.0-46.0); Hemoglobin 10.4 g/dL (12.2-16.2); Mean Corpuscular Hemoglobin 29.7 pg (28.0-32.0); Mean Corpuscular Volume 89.6 fL (80.0-100.0); Nucleated Red Blood Cells % 0.1 %; Potassium 3.6 mmol/L (3.5-5.1); Sodium 142 mmol/L (136-145)
[2025-02-14 10:47] LABS: Calcium 9.2 mg/dL (8.7-10.4)
[2025-02-14 10:52] LABS: BUN/Creatinine Ratio 8.6 (10.0-20.0); Blood Urea Nitrogen 8 mg/dL (9-23); Glucose 113 mg/dL (74-106)
[2025-02-14] MEDS: POTASSIUM EFFERVESENT TAB 25 MEQ PO ONE (10:53)
--- NOTE | 2025-02-14 12:20 | ECG ---
[facility] Test Date: 2025-02-12 Test Time: 10:14:03 Pat Name: JOHN FAULKNER Department: ED Room: 0215 B Gender: F Manager Acquisition: dr RUBALCAVA: 1955 Requested By: JJ BRANCH Order Number: [id number] Reading MD: Ulises Valladares Measurements Intervals [place] Rate: 80 P: 36 CO: 133 QRS: 33 QRSD: 91 T: 33 QT: 357 QTc: 412 Interpretive Statements Sinus rhythm Borderline T abnormalities, anterior leads Electronically Signed On 02-14-2025 22:26:17 PDT by Ulises Valladares Please click the below link to view image of tracing.
--- NOTE | 2025-02-14 13:51 | DVHPNRES ---
Progress Note Date Seen: Feb 14, 2025 Resident Creating Document: AGUS VIDAL Medical Necessity Reason Pt with a Central, PICC or Fol: No Subjective Review of Systems The is a 69-year-old female with a history of hypertension, hyperlipidemia, diabetes mellitus, pulmonary embolism (PE), myocardial infarction ([place]), fibromyalgia, and uterine fibroids. She presents with abdominal pain, primarily in the epigastric region, accompanied by radiating numbness and tingling to the suprapubic and rectal areas. Patient reports that her pain began over a month ago. She was previously admitted to [facility] for four days, during which she was diagnosed with uterine fibroids. Since her discharge, she has experienced worsening symptoms, including burning epigastric pain and progressive numbness and tingling that radiates from her abdomen down to her toes. She also notes persistent bloating. The numbness has become so severe that she is unable to sense when she needs to use the restroom, leading her to rely on adult diapers at home. She reports a prior episode of bowel incontinence one month ago, which has since resolved. She had nausea and vomiting two weeks ago, currently resolved. No hematemesis. She has not had prior EGD or colonoscopy. She also has a bulging disc in her neck. Patient seen at bedside. On examination today, Patient reports numbness and tingling in both legs and complained of abdominal pain. Patient is also being evaluated for an unusual presentation of descending neuropathy. Given the atypical features and concern for a unusal form of peripheral neuropathy, a neurology consult has been requested. Objective vital signs Vital Sign Date Time Temp Pulse Resp B/P (MAP) Pulse Ox O2 Delivery O2 Flow Rate FiO2 02/14/25 12:55 98.4 82 21 103/56 (72) 91 98.4 02/14/25 08:00 Room Air* 0 21 Total Intake and Output 02/13/25 02/13/25 02/14/25 15:00 23:00 07:00 Intake Total 150 ml 350 ml 650 ml Balance 150 ml 350 ml 650 ml medications Current Medications Medications Dose Ordered Sig/Shiloh Route Start Time Stop Time Status Last Admin Dose Admin Ondansetron HCl 4 mg Q4HP PRN IV 02/12/25 16:00 Docusate Sodium 100 mg BIDPRN PRN PO 02/12/25 16:00 Acetaminophen 650 mg Q6HP PRN PO 02/12/25 16:00 Ceftriaxone Sodium 50 ml @ 100 mls/hr DAILY@09 IV 02/13/25 09:00 02/14/25 09:21 100 MLS/HR Metronidazole 100 ml @ 100 mls/hr Q8HR IV 02/12/25 22:00 02/14/25 06:13 100 MLS/HR Atorvastatin Calcium 20 mg HS PO 02/12/25 22:00 02/13/25 21:43 20 MG Clonidine HCl 0.1 mg TID PO 02/12/25 22:00 02/14/25 06:14 0.1 MG Hydrochlorothiazide 25 mg DAILY PO 02/13/25 10:00 02/13/25 09:40 25 MG Acetaminophen/ Hydrocodone Bitart 1 tab QIDP PRN PO 02/12/25 16:00 02/13/25 13:32 1 TAB Metoprolol Succinate 50 mg DAILY PO 02/13/25 10:00 02/14/25 09:22 50 MG Rivaroxaban 15 mg DAILY PO 02/13/25 10:00 02/14/25 09:22 15 MG Sertraline HCl 50 mg DAILY PO 02/13/25 10:00 02/14/25 09:23 50 MG Patient Own Medication 2 cap BID PO 02/12/25 22:00 Folic Acid 1 mg DAILY PO 02/13/25 10:00 02/14/25 09:21 1 MG Lisinopril 10 mg DAILY PO 02/13/25 10:00 02/14/25 09:23 10 MG Patient Own Medication 1 tab DAILY PO 02/13/25 10:00 Patient Own Medication 1 tab HS PO 02/12/25 22:00 Hydromorphone HCl 0.25 mg Q4HPRN PRN IV 02/13/25 15:45 02/14/25 09:26 0.25 MG Mupirocin 1 applic BID EACHNOSTRI 02/13/25 22:00 02/17/25 22:00 02/14/25 10:54 1 APPLIC Examination General Appearance: Alert, Oriented X3, Cooperative, mild distress HEENT: Atraumatic, PERRLA Respiratory: Clear to auscultation, Normal air movement Cardiovascular: Regular rate, Normal S1, Normal S2, No murmurs Abdominal: Normal bowel sounds, Soft, Other (C/O epigastric pain) Extremities: No clubbing, No cyanosis, No edema, Normal pulses Skin: No rashes, No breakdown, No significant lesion Neuro: Normal gait, Normal speech, Strength at 5/5 X4 ext Psych/Mental Status: Mental status NL, Mood NL laboratory and microbiology Laboratory Tests 02/14/25 10:10 Test 02/14/25 10:10 Range/Units Serum Glucose 113 H 74-106 mg/dL Microbiology Date/Time Source Procedure Growth Status 02/12/25 18:30 Nose MRSA Screen - Final Methicillin Resistant S.aureus Complete Labs and/or images reviewed: Labs reviewed by me, Image(s) reviewed by me Problem List/Assessment/Plan Problem List/Assessment/Plan # Acute intractable abdominal pain # Diverticulosis # Fibroid uterus # Renal calculi -IV fluid -Abdomen/Pelvis CT: Mild submucosal fatty infiltration of the ascending colon which may be associated with patient's body habitus with colonic inflammatory bowel disease not completely excluded. Nonobstructing punctate right renal calculi. Small right renal cyst. Colonic diverticulosis without diverticulitis. Small to moderate amount of fecal material within the colon. Fibroid uterus. 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 No significant spinal canal or neural foramina stenosis. If symptoms persist, consider MRI for further evaluation. -Lumbar Spine CT: No definite CT evidence of acute fracture or dislocation of the bony lumbar spine. Suggestion of qcti-ff-jozrodzq canal stenosis at L3-L4. # Acute diarrhea due to enterocolitis -Stool culture # Essential hypertension -Metoprolol -Lisinopril -Hydrochlorithiazide # Tobacco dependance -Chest X-Ray: No acute disease. -recommend cessation # Hyperlipidemia # Type 2 diabetes mellitus -A1C: 5.4, however per patient, she was diagnosed with DM few month ago. # MRSA Screen Final result: Methicillin Resistant S.aureus DNA detected. -Mupirocin DVT prophylaxis: Xarelto 15mg Goals of care: Full code, discussed for >16 minutes on 02/14/25 Plan discussed with patient Plan discussed with Dr. Nelson Plan discussed with: Patient Date of Service: Feb 14, 2025 Billing Provider: TAMMI NELSON MD Common Visit Codes: [id number] INP/OBS CARE(HIGH) YOUNGBERNDAETTESADI RESIDENT Feb 14, 2025 13:51 TAMMI NELSON MD Feb 18, 2025 18:54
[2025-02-14] MEDS: ONDANSETRON HCL 4 MG/2 ML VIAL IV PRN (16:30)
--- NOTE | 2025-02-14 20:23 | DVHINCON2 ---
Date of service: Feb 14, 2025 Referring Physician Reason for Consultation Descending neuropathy unusual for DM History of Present Illness Ms. Alvarado is a 69 years old right-handed female with a history of hypertension, diabetes, obesity, coronary artery disease, heart attack, congestive heart failure. She came to the [facility] on 02/12/2025 with a chief complaint of abdominal pain, but she also has other complaints, at this time, she is alert and fully oriented, she provided the following history Her problem started on 01/16/2025, when her blood pressure was on recordable at her family doctor's office, and she was sent to the [facility] where the blood pressure was confirmed to be low, and she was also found to have UTI and stump infection. She was treated accordingly, and was discharged on 01/20/2025 On 01/20/2025, the patient developed numbness starting in the upper portion of her stomach, spread downward to both lower extremities all the way to the feet in about 30 minutes, the patient's relate the day she was only able to move the legs slightly, and she was not able to walk, she could not feel anything in the stomach, her bilateral lower extremity and her private area, she could not control her bowel and bladder, one week after she is discharged, she started to improve, in 1.5 weeks after he is discharged from the [facility], she was able to walk, and control her bowel and bladder, but she is doing these a walker or a cane to walk around. She has never had similar problem before, she denies history of stroke Urinalysis, 02/12/2025: WBC: 4, urine leukocyte esterase: Trace WBC/HB/PLT/MCV, 02/14/2025: 8.3/10.4/432/89.6 BUN/CR, 02/13/2025: 8/1.05, 02/14/2025: 8/0.93 HGB A1c, 02/13/2025: 5.4 Vitamin B12, 02/13/2025: 566 TSH, 02/13/25: 2.91 CT T-spine, 02/13/2025: No evidence of acute traumatic fractures or spondylolisthesis. No significant spinal canal or neural foramina stenosis. If symptoms persist, consider MRI for further evaluation. CT lumbar spine, 02/14/2025: No definite CT evidence of acute fracture or dislocation of the bony lumbar spine. Suggestion of syqu-hv-wiezhrji canal stenosis at L3-L4. Past Medical History Hypertension diabetes, obesity, coronary artery disease, heart attack, congestive heart failure, Past Surgical History Cardiac angioplasty and stenting Family History: FH: heart attack G8 MOTHER, Family History Hypertension, diabetes, coronary artery disease, heart attack Social History She was a tobacco smoker, but denies a history of drug/alcohol abuse Allergies: Coded Allergies: Morphine (Verified Allergy, Unknown, 02/12/25) Home Meds Reported Medications Hydrocodone-Acetaminophen (Hydrocodone/Acetaminophen 10-325 mg) 1 Tab Tab, 1 TAB PO QIDP PRN, TAB 02/12/25 Rivaroxaban (Xarelto Tablet) 15 Mg Tb, 1 TAB PO DAILY 02/12/25 Naloxegol Oxalate (Movantik) 25 Mg Tab, 1 TAB PO DAILY 02/12/25 Atorvastatin Calcium (ATORVASTATIN CALCIUM) 20 Mg Tab, 1 TAB PO HS 02/12/25 Hctz (Hydrochlorothiazide) 25 Mg Tab, 1 TAB PO DAILY 02/12/25 Clonidine Hydrochloride (Clonidine Hcl) 0.1 Mg Tab, 1 TAB PO TID 02/12/25 Lisinopril (Lisinopril) 10 Mg Tab, 1 TAB PO DAILY 02/12/25 Metoprolol Succinate (Metoprolol Succinate Er) 50 Mg Tab, 1 TAB PO DAILY 02/12/25 Suvorexant (Belsomra) 20 Mg Tab, 1 TAB PO QHSP PRN 02/12/25 Ondansetron HCl (Ondansetron Hydrochloride) 4 Mg Tab, 1 TAB PO BIDP PRN 02/12/25 Folic Acid (Folic Acid) 1 Mg Tab, 1 TAB PO DAILY 02/12/25 Sertraline HCl (Sertraline HCl) 50 Mg Tab, 1 TAB PO DAILY 02/12/25 Epa Ethyl Vania (VASCEPA) 1 Gm Cap, 2 CAP PO BID 02/12/25 Discontinued Reported Medications Hydrocodone-Acetaminophen (Hydrocodone/Acetaminophen 10-325 mg) 1 Tab Tab, 1 TAB PO QIDP PRN, TAB 02/12/25 Current Medications Current Medications Medications (Trade) Dose Ordered Sig/Shiloh Route PRN Reason Start Time Stop Time Status Last Admin Mupirocin (Bactroban 2% Ointment) 1 applic BID EACHNOSTRI 02/13/25 22:00 02/17/25 22:00 02/14/25 10:54 Review of Systems As above, the other systems are negative Vital Signs Vital Signs Date Time Temp Pulse Resp B/P (MAP) Pulse Ox O2 Delivery O2 Flow Rate FiO2 02/14/25 16:34 97.8 76 20 118/72 (87) 97 97.8 02/14/25 08:00 Room Air* 0 21 Physical Exam GENERAL EXAM: General: the patient is well developed and nourished. No acute distress. HEENT: Normocephalic, neck is supple, no carotid bruits. No mass. RESPIRATORY: Normal respiratory effort with symmetrical lung expansion. Lungs clear to auscultation. CARDIOVASCULAR: Regular rate and rhythm with no murmurs. S1, S2. ABDOMEN: Soft, nontender, normal bowel sound MUSCULOSKELETAL EXAM: A lot of tenderness to palpation in the T-spine, lumbar spine NEUROLOGICAL: MENTAL STATUS: Awake and alert. Oriented to person, place, time and general circumstances. Able to give personal history. SPEECH, LANGUAGE, HIGHER CORTICAL FUNCTION: no aphasia or dysathria. CRANIAL NERVES: #2: Intact visual sequeira to confrontation. The optic discs were sharp. #3,4,6: Pupils are equal, round and reactive. EOMs full and conjugate.No nystagmus. #5: Facial sensation intact in all three divisions bilaterally. Mandibular strength intact. #7: Facial muscles symmetrical and strength intact. #8: Hearing grossly normal to voice. #9,10: Uvula and soft palate rise in the midline. Swallow and voice are normal. #11: Trapezius and sternomastoid strength intact bilaterally. #12: Tongue midline. No fasciculations or atrophy. SENSATION: Sensation to touch and pinprick is diminished below bilateral T7-T8 dermatomes MOTOR: Normal tone in the upper and lower extremity. Normal muscle bulk. No fasciculations. No abnormal movements or posturing. Muscle strength of the major groups in the upper extremities is 5/5. Muscle strength of the major groups in the lower extremities is no less than 3-4/5. REFLEXES: Deep tendon reflexes are symmetrical, but diminished in bilateral knees and ankles. No pathological reflexes. CEREBELLAR/COORDINATION: Finger to nose is normal bilaterally. GAIT/STATION: deferred. Labs/Diagnostic Data Labs Test 02/14/25 10:10 02/13/25 14:25 02/13/25 10:10 02/12/25 18:00 Range/Units White Blood Count 8.3 # 4.4-10.8 10^3/uL Red Blood Count 3.49 L 4.0-5.20 10^6/uL Hemoglobin 10.4 L 12.2-16.2 g/dL Hematocrit 31.3 L 36.0-46.0 % Mean Corpuscular Volume 89.6 80.0-100.0 fL Mean Corpuscular Hemoglobin 29.7 28.0-32.0 pg Mean Corpuscular Hemoglobin Concent 33.2 32.0-36.0 g/dL Red Cell Distribution Width 14.2 11.8-14.3 % Platelet Count 432 140-450 10^3/uL Mean Platelet Volume 6.3 L 6.9-10.8 fL Neutrophils (%) (Auto) 63.6 37.0-80.0 % Lymphocytes (%) (Auto) 27.0 10.0-50.0 % Monocytes (%) (Auto) 7.3 0.0-12.0 % Eosinophils (%) (Auto) 1.7 0.0-7.0 % Basophils (%) (Auto) 0.4 0.0-2.0 % Neutrophils # (Auto) 5.3 1.6-8.6 10 ^3/uL Lymphocytes # (Auto) 2.2 0.4-5.4 10 ^3/uL Monocytes # (Auto) 0.6 0-1.3 10 ^3/uL Eosinophils # (Auto) 0.1 0-0.8 10 ^3/uL Basophils # (Auto) 0 0-0.2 10 ^3/uL Nucleated Red Blood Cells 0.1 % Sodium Level 142 136-145 mmol/L Potassium Level 3.6 3.5-5.1 mmol/L Chloride Level 104 98-107 mmol/L Carbon Dioxide Level 28 20-31 mmol/L Anion Gap 10 5-15 Blood Urea Nitrogen 8 L 9-23 mg/dL Creatinine 0.93 0.550-1.02 mg/dL Glomerular Filtration Rate Calc 67 >90 mL/min BUN/Creatinine Ratio 8.6 L 10.0-20.0 Serum Glucose 113 H 74-106 mg/dL Calcium Level 9.2 8.7-10.4 mg/dL Vitamin B12 Level 566 211-911 pg/mL Hemoglobin A1c 5.4 <5.7 % A1C Total Bilirubin 0.4 0.2-1.0 mg/dL Aspartate Amino Transferase (AST) 32 13-40 U/L Alanine Aminotransferase (ALT) 13 7-40 U/L Alkaline Phosphatase 118 H 46-116 U/L Total Protein 6.4 5.7-8.2 g/dL Albumin 4.4 3.2-4.8 g/dL Thyroid Stimulating Hormone (TSH) 2.91 0.55-4.78 uIU/mL Urine Color Light-yellow Yellow Urine Clarity Turbid H Clear Urine pH 5.0 5.0-9.0 Urine Specific [place] 1.014 1.001-1.035 Urine Protein Negative Negative Urine Ketones Negative Negative Urine Blood Negative Negative /uL Urine Nitrite Negative Negative Urine Bilirubin Negative Negative Urine Urobilinogen Normal Negative mg/dL Urine Leukocyte Esterase Trace Negative /uL Urine RBC 1 0 - 4 /hpf Urine Microscopic WBC 4 0-5 /HPF Urine Squamous Epithelial Cells Few <5 /hpf Urine Bacteria Few H None Seen /hpf Urine Hyaline Casts Mod 0 - 2 /lpf Urine Glucose Normal Normal mg/dL Microbiology Date/Time Source Procedure Growth Status 02/12/25 18:30 Nose MRSA Screen - Final Methicillin Resistant S.aureus Complete Assessment Paraplegia, sensory loss in the stomach, lower extremities, incontinence To rule out transfer myelitis To rule out vascular disease in the thoracic spine Descending neuropathy/Guillain-Ault less likely Plan/Recommendation Monitoring Supportive treatment MRI thoracic spine with without contrast Up to chair Physical therapy DVT prophylaxis More recommendation per clinical course Prognosis: Poor This medical document was created using an electronic medical record system with [employer] dictation system. Although this document has been carefully reviewed, there may still be some phonetic and typographical errors. These area s are purely typographical due to imperfections of the software programs, and do not reflect any compromise in the patient's medical care. Plan discussed with: Patient, Other ALEJANDRA CONNOR MD Feb 14, 2025 20:23
[2025-02-14] MEDS ORDERED: LORazepam 2MG/ML-1ML VIAL IV ONE (21:30)
--- NOTE | 2025-02-14 22:24 | DVHPN2 ---
Progress Note - Dictate Date Seen: Feb 14, 2025 Medical Necessity Reason Pt with a Central, PICC or Fol: No Subjective Ongoing epigastric pain and progressive numbness and tingling that radiates from her abdomen down to her toes. She also notes persistent bloating. The numbness has become so severe that she is unable to sense when she needs to use the restroom Nausea vomiting and incontinence have improved since two weeks ago vital signs Vital Sign Date Time Temp Pulse Resp B/P (MAP) Pulse Ox O2 Delivery O2 Flow Rate FiO2 02/14/25 21:33 68 16 118/69 02/14/25 21:00 97.9 100 97.9 02/14/25 20:00 Room Air* 0 21 Total Intake and Output 02/13/25 02/13/25 02/14/25 15:00 23:00 07:00 Intake Total 150 ml 350 ml 650 ml Balance 150 ml 350 ml 650 ml medications Current Medications Medications Dose Ordered Sig/Shiloh Route Start Time Stop Time Status Last Admin Dose Admin Ondansetron HCl 4 mg Q4HP PRN IV 02/12/25 16:00 02/14/25 16:30 4 MG Docusate Sodium 100 mg BIDPRN PRN PO 02/12/25 16:00 Acetaminophen 650 mg Q6HP PRN PO 02/12/25 16:00 Ceftriaxone Sodium 50 ml @ 100 mls/hr DAILY@09 IV 02/13/25 09:00 02/14/25 09:21 100 MLS/HR Metronidazole 100 ml @ 100 mls/hr Q8HR IV 02/12/25 22:00 02/14/25 21:25 100 MLS/HR Atorvastatin Calcium 20 mg HS PO 02/12/25 22:00 02/14/25 21:26 20 MG Clonidine HCl 0.1 mg TID PO 02/12/25 22:00 02/14/25 14:28 0.1 MG Hydrochlorothiazide 25 mg DAILY PO 02/13/25 10:00 02/13/25 09:40 25 MG Acetaminophen/ Hydrocodone Bitart 1 tab QIDP PRN PO 02/12/25 16:00 02/13/25 13:32 1 TAB Metoprolol Succinate 50 mg DAILY PO 02/13/25 10:00 02/14/25 09:22 50 MG Rivaroxaban 15 mg DAILY PO 02/13/25 10:00 02/14/25 09:22 15 MG Sertraline HCl 50 mg DAILY PO 02/13/25 10:00 02/14/25 09:23 50 MG Patient Own Medication 2 cap BID PO 02/12/25 22:00 Folic Acid 1 mg DAILY PO 02/13/25 10:00 02/14/25 09:21 1 MG Lisinopril 10 mg DAILY PO 02/13/25 10:00 02/14/25 09:23 10 MG Patient Own Medication 1 tab DAILY PO 02/13/25 10:00 Patient Own Medication 1 tab HS PO 02/12/25 22:00 Hydromorphone HCl 0.25 mg Q4HPRN PRN IV 02/13/25 15:45 02/14/25 21:33 0.25 MG Mupirocin 1 applic BID EACHNOSTRI 02/13/25 22:00 02/17/25 22:00 02/14/25 21:27 1 APPLIC objective General: NAD, AAOX3 Chest: lung sequeira clear to auscultation Heart: RRR, no murmur Abdomen: Mild epigastric tenderness to palpation, +BS laboratory and microbiology Laboratory Tests 02/14/25 10:10 Test 02/14/25 10:10 Range/Units Serum Glucose 113 H 74-106 mg/dL Problems(with codes): (1) Acute abdominal pain (2) Non-specific colitis Prognosis Assessment plan Neurology consult noted and recommendations noted Paraplegia, sensory loss in the stomach, lower extremities, incontinence To rule out transfer myelitis To rule out vascular disease in the thoracic spine 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
[2025-02-15] VITALS (7 sets, daily range): BP systolic 100–135; BP diastolic 50–84; PULSE 70–73; RESP 17–20; TEMP 97.5–98.5; O2SAT 97–100
--- NOTE | 2025-02-15 09:03 | DVHPN2 ---
Progress Note - Dictate Date Seen: Feb 15, 2025 Medical Necessity Reason Pt with a Central, PICC or Fol: No Subjective Ms. Alvarado is a 69 years old right-handed female with a history of hypertension, diabetes, obesity, coronary artery disease, heart attack, congestive heart failure. She came to the [facility] on 02/12/2025 with a chief complaint of abdominal pain, but she also has other complaints I have seen and examined the patient, I have talked to her nurse, her sister in the room with her. She reports no improvement, she reports that she can walk around herself Urinalysis, 02/12/2025: WBC: 4, urine leukocyte esterase: Trace WBC/HB/PLT/MCV, 02/14/2025: 8.3/10.4/432/89.6 BUN/CR, 02/13/2025: 8/1.05, 02/14/2025: 8/0.93 HGB A1c, 02/13/2025: 5.4 Vitamin B12, 02/13/2025: 566 TSH, 02/13/25: 2.91 CT T-spine, 02/13/2025: No evidence of acute traumatic fractures or spondylolisthesis. No significant spinal canal or neural foramina stenosis. If symptoms persist, consider MRI for further evaluation. CT lumbar spine, 02/14/2025: No definite CT evidence of acute fracture or dislocation of the bony lumbar spine. Suggestion of [id number] canal stenosis at L3-L4. vital signs Vital Sign Date Time Temp Pulse Resp B/P (MAP) Pulse Ox O2 Delivery O2 Flow Rate FiO2 02/15/25 05:57 75 16 105/68 02/15/25 05:00 97.5 100 97.5 02/14/25 20:00 Room Air* 0 21 Total Intake and Output 02/14/25 02/14/25 02/15/25 15:00 23:00 07:00 Intake Total 150 ml 1700 ml 700 ml Balance 150 ml 1700 ml 700 ml medications Current Medications Medications Dose Ordered Sig/Shiloh Route Start Time Stop Time Status Last Admin Dose Admin Ondansetron HCl 4 mg Q4HP PRN IV 02/12/25 16:00 02/14/25 16:30 4 MG Docusate Sodium 100 mg BIDPRN PRN PO 02/12/25 16:00 Acetaminophen 650 mg Q6HP PRN PO 02/12/25 16:00 Ceftriaxone Sodium 50 ml @ 100 mls/hr DAILY@09 IV 02/13/25 09:00 02/14/25 09:21 100 MLS/HR Metronidazole 100 ml @ 100 mls/hr Q8HR IV 02/12/25 22:00 02/15/25 05:24 100 MLS/HR Atorvastatin Calcium 20 mg HS PO 02/12/25 22:00 02/14/25 21:26 20 MG Clonidine HCl 0.1 mg TID PO 02/12/25 22:00 02/14/25 14:28 0.1 MG Hydrochlorothiazide 25 mg DAILY PO 02/13/25 10:00 02/13/25 09:40 25 MG Acetaminophen/ Hydrocodone Bitart 1 tab QIDP PRN PO 02/12/25 16:00 02/13/25 13:32 1 TAB Metoprolol Succinate 50 mg DAILY PO 02/13/25 10:00 02/14/25 09:22 50 MG Rivaroxaban 15 mg DAILY PO 02/13/25 10:00 02/14/25 09:22 15 MG Sertraline HCl 50 mg DAILY PO 02/13/25 10:00 02/14/25 09:23 50 MG Patient Own Medication 2 cap BID PO 02/12/25 22:00 Folic Acid 1 mg DAILY PO 02/13/25 10:00 02/14/25 09:21 1 MG Lisinopril 10 mg DAILY PO 02/13/25 10:00 02/14/25 09:23 10 MG Patient Own Medication 1 tab DAILY PO 02/13/25 10:00 Patient Own Medication 1 tab HS PO 02/12/25 22:00 Mupirocin 1 applic BID EACHNOSTRI 02/13/25 22:00 02/17/25 22:00 02/14/25 21:27 1 APPLIC Hydromorphone HCl 0.25 mg Q6HP PRN IV 02/15/25 11:30 objective General: the patient is well developed and nourished. No acute distress. MUSCULOSKELETAL EXAM: A lot of tenderness to palpation in the T-spine, lumbar spine MENTAL STATUS: She is alert and fully oriented SPEECH, LANGUAGE, HIGHER CORTICAL FUNCTION: no aphasia or dysathria. CRANIAL NERVES: Pupils are equal, round and reactive. EOMs full and conjugate.No nystagmus. Facial sensation intact in all three divisions bilaterally. Mandibular strength intact. Facial muscles symmetrical and strength intact. Tongue midline. No fasciculations or atrophy. SENSATION: Sensation to touch and pinprick is diminished below bilateral T6 dermatomes MOTOR: Normal tone in the upper and lower extremity. Normal muscle bulk. No fasciculations. No abnormal movements or posturing. Muscle strength of the major groups in the upper extremities is 5/5. Muscle strength of the major groups in the lower extremities is no less than 3-4/5. REFLEXES: Deep tendon reflexes are symmetrical, but diminished in bilateral knees and ankles. No pathological reflexes. CEREBELLAR/COORDINATION: Finger to nose is normal bilaterally. GAIT/STATION: deferred. 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 Although this document has been carefully reviewed, there may still be some phonetic and typographical errors. These areas are purely typographical due to imperfections of the software programs, and do not reflect any compromise in the patient's medical care. Prognosis poor Plan discussed with: Patient, Other ALEJANDRA CONNOR MD Feb 15, 2025 09:03
[2025-02-15 10:04] LABS: Hematocrit 31.5 % (36.0-46.0); Hemoglobin 10.6 g/dL (12.2-16.2); Mean Corpuscular Hemoglobin 30.0 pg (28.0-32.0); Mean Corpuscular Volume 89.0 fL (80.0-100.0); Nucleated Red Blood Cells % 0.0 %
[2025-02-15 10:10] LABS: Chloride 103 mmol/L (98-107); Potassium 3.6 mmol/L (3.5-5.1); Sodium 140 mmol/L (136-145)
[2025-02-15 10:11] LABS: Anion Gap 9 (5-15); Calcium 9.3 mg/dL (8.7-10.4); Carbon Dioxide 28 mmol/L (20-31)
[2025-02-15 10:16] LABS: BUN/Creatinine Ratio 6.0 (10.0-20.0)
[2025-02-15 10:17] LABS: Blood Urea Nitrogen 6 mg/dL (9-23); Glucose 107 mg/dL (74-106)
[2025-02-15] MEDS: HYDROmorphone HCL 2 MG/ML VL/or syr IV PRN (11:41)
[2025-02-15] MEDS ORDERED: GADOTERATE MEG 10 MMOL/20ml INJ (0.5MMOL/ml) IV ONE (11:46)
--- NOTE | 2025-02-15 13:35 | DVH ---
PROCEDURE: MRI THORACIC SPINE WO W Indication: Myelopathy COMPARISON: None TECHNIQUE: Multiplanar multisequence images of the the thoracic spine with and without contrast. FINDINGS: Thoracic vertebral body heights maintained. Mild multilevel disc space narrowing and desiccation. No abnormal marrow edema. Alignment grossly preserved. Thoracic cord is normal in morphology and signal. No high-grade thoracic spinal canal, neural foramin al stenosis. No abnormal thoracic cord enhancement. No abnormal Thoracic marrow enhancement. 13 mm right renal cyst. IMPRESSION: Mild thoracic degenerative disc disease. No high-grade thoracic spinal canal, neural foraminal stenosis. No abnormal thoracic cord enhancement
--- NOTE | 2025-02-15 19:02 | DVHPNRES ---
Progress Note Date Seen: Feb 15, 2025 Resident Creating Document: AGUS VIDAL Medical Necessity Reason Pt with a Central, PICC or Fol: No Subjective Review of Systems The is a 69-year-old female with a history of hypertension, hyperlipidemia, diabetes mellitus, pulmonary embolism (PE), myocardial infarction (ID), fibromyalgia, and uterine fibroids. She presents with abdominal pain, primarily in the epigastric region, accompanied by radiating numbness and tingling to the suprapubic and rectal areas. Patient reports that her pain began over a month ago. She was previously admitted to [facility] for four days, during which she was diagnosed with uterine fibroids. Since her discharge, she has experienced worsening symptoms, including burning epigastric pain and progressive numbness and tingling that radiates from her abdomen down to her toes. She also notes persistent bloating. The numbness has become so severe that she is unable to sense when she needs to use the restroom, leading her to rely on adult diapers at home. She reports a prior episode of bowel incontinence one month ago, which has since resolved. She had nausea and vomiting two weeks ago, currently resolved. No hematemesis. She has not had prior EGD or colonoscopy. She also has a bulging disc in her neck. Patient seen at bedside. On examination today, Patient reports numbness and tingling in both legs and complained of abdominal pain. Patient is also being evaluated for an unusual presentation of descending neuropathy. Given the atypical features and concern for a unusal form of peripheral neuropathy, a neurology consult has been requested. MRI of the thoracic spine with and without contrast has been ordered for further evaluation. Objective vital signs Vital Sign Date Time Temp Pulse Resp B/P (MAP) Pulse Ox O2 Delivery O2 Flow Rate FiO2 02/15/25 15:19 125/75 02/15/25 13:00 97.8 70 20 99 97.8 02/15/25 08:00 Room Air* 0 21 Total Intake and Output 02/14/25 02/14/25 02/15/25 15:00 23:00 07:00 Intake Total 150 ml 1700 ml 700 ml Balance 150 ml 1700 ml 700 ml medications Current Medications Medications Dose Ordered Sig/Shiloh Route Start Time Stop Time Status Last Admin Dose Admin Ondansetron HCl 4 mg Q4HP PRN IV 02/12/25 16:00 02/15/25 09:00 4 MG Docusate Sodium 100 mg BIDPRN PRN PO 02/12/25 16:00 Acetaminophen 650 mg Q6HP PRN PO 02/12/25 16:00 Ceftriaxone Sodium 50 ml @ 100 mls/hr DAILY@09 IV 02/13/25 09:00 02/15/25 09:19 100 MLS/HR Metronidazole 100 ml @ 100 mls/hr Q8HR IV 02/12/25 22:00 02/15/25 14:19 100 MLS/HR Atorvastatin Calcium 20 mg HS PO 02/12/25 22:00 02/14/25 21:26 20 MG Clonidine HCl 0.1 mg TID PO 02/12/25 22:00 02/15/25 14:19 0.1 MG Hydrochlorothiazide 25 mg DAILY PO 02/13/25 10:00 02/15/25 09:05 25 MG Acetaminophen/ Hydrocodone Bitart 1 tab QIDP PRN PO 02/12/25 16:00 02/13/25 13:32 1 TAB Metoprolol Succinate 50 mg DAILY PO 02/13/25 10:00 02/15/25 09:04 50 MG Rivaroxaban 15 mg DAILY PO 02/13/25 10:00 02/15/25 09:05 15 MG Sertraline HCl 50 mg DAILY PO 02/13/25 10:00 02/15/25 09:19 50 MG Patient Own Medication 2 cap BID PO 02/12/25 22:00 Folic Acid 1 mg DAILY PO 02/13/25 10:00 02/15/25 09:04 1 MG Lisinopril 10 mg DAILY PO 02/13/25 10:00 02/15/25 09:04 10 MG Patient Own Medication 1 tab DAILY PO 02/13/25 10:00 Patient Own Medication 1 tab HS PO 02/12/25 22:00 Mupirocin 1 applic BID EACHNOSTRI 02/13/25 22:00 02/17/25 22:00 02/15/25 09:19 1 APPLIC Hydromorphone HCl 0.25 mg Q6HP PRN IV 02/15/25 11:30 02/15/25 11:41 0.25 MG Examination General Appearance: Alert, Oriented X3, Cooperative, mild distress HEENT: Atraumatic, PERRLA Respiratory: Clear to auscultation, Normal air movement Cardiovascular: Regular rate, Normal S1, Normal S2, No murmurs Abdominal: Normal bowel sounds, Soft, Other (C/O epigastric pain) Extremities: No clubbing, No cyanosis, No edema, Normal pulses Skin: No rashes, No breakdown, No significant lesion Neuro: Normal gait, Normal speech, Strength at 5/5 X4 ext Psych/Mental Status: Mental status NL, Mood NL laboratory and microbiology Laboratory Tests 02/15/25 09:35 Test 02/15/25 09:35 Range/Units Serum Glucose 107 H 74-106 mg/dL Microbiology Date/Time Source Procedure Growth Status 02/12/25 18:30 Nose MRSA Screen - Final Methicillin Resistant S.aureus Complete Labs and/or images reviewed: Labs reviewed by me, Image(s) reviewed by me Problem List/Assessment/Plan Problem List/Assessment/Plan # Acute intractable abdominal pain # Diverticulosis # Fibroid uterus # Renal calculi -IV fluid -Abdomen/Pelvis CT: Mild submucosal fatty infiltration of the ascending colon which may be associated with patient's body habitus with colonic inflammatory bowel disease not completely excluded. Nonobstructing punctate right renal calculi. Small right renal cyst. Colonic diverticulosis without diverticulitis. Small to moderate amount of fecal material within the colon. Fibroid uterus. 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 No significant spinal canal or neural foramina stenosis. If symptoms persist, consider MRI for further evaluation. -Lumbar Spine CT: No definite CT evidence of acute fracture or dislocation of the bony lumbar spine. Suggestion of bary-pj-nrlluprb canal stenosis at L3-L4. # Acute diarrhea due to enterocolitis -Stool culture # Essential hypertension -Metoprolol -Lisinopril -Hydrochlorithiazide # Tobacco dependance -Chest X-Ray: No acute disease. -recommend cessation # Hyperlipidemia # Type 2 diabetes mellitus -A1C: 5.4, however per patient, she was diagnosed with DM few month ago. # MRSA Screen Final result: Methicillin Resistant S.aureus DNA detected. -Mupirocin DVT prophylaxis: Xarelto 15mg Goals of care: Full code, discussed for >16 minutes on 02/15/25 Plan discussed with patient Plan discussed with Dr. Nelson Plan discussed with: Patient My Orders My Orders Orders - AGUS VIDAL Procedure Category Date Status Time Complete Blood Count LAB 02/16/25 Verified 04:00 Basic Metabolic Panel LAB 02/16/25 Verified 04:00 Date of Service: Feb 15, 2025 Billing Provider: TAMMI NELSON MD Common Visit Codes: [id number] INP/OBS CARE(HIGH) AGUS VIDAL Feb 15, 2025 19:02 TAMMI NELSON MD Feb 18, 2025 18:54
--- NOTE | 2025-02-15 21:20 | DVHPN2 ---
Progress Note - Dictate Date Seen: Feb 15, 2025 Medical Necessity Reason Pt with a Central, PICC or Fol: No Subjective Ongoing epigastric pain and progressive numbness and tingling that radiates from her abdomen down to her toes. b/l leg pain She also notes persistent bloating. The numbness has become so severe that she is unable to sense when she needs to use the restroom Nausea vomiting and incontinence have improved since two weeks ago vital signs Vital Sign Date Time Temp Pulse Resp B/P (MAP) Pulse Ox O2 Delivery O2 Flow Rate FiO2 02/15/25 21:05 72 18 115/70 02/15/25 20:00 97 Room Air* 0 21 02/15/25 13:00 97.8 97.8 Total Intake and Output 02/14/25 02/14/25 02/15/25 15:00 23:00 07:00 Intake Total 150 ml 1700 ml 700 ml Balance 150 ml 1700 ml 700 ml medications Current Medications Medications Dose Ordered Sig/Shiloh Route Start Time Stop Time Status Last Admin Dose Admin Ondansetron HCl 4 mg Q4HP PRN IV 02/12/25 16:00 02/15/25 09:00 4 MG Docusate Sodium 100 mg BIDPRN PRN PO 02/12/25 16:00 Acetaminophen 650 mg Q6HP PRN PO 02/12/25 16:00 Ceftriaxone Sodium 50 ml @ 100 mls/hr DAILY@09 IV 02/13/25 09:00 02/15/25 09:19 100 MLS/HR Metronidazole 100 ml @ 100 mls/hr Q8HR IV 02/12/25 22:00 02/15/25 20:57 100 MLS/HR Atorvastatin Calcium 20 mg HS PO 02/12/25 22:00 02/15/25 20:57 20 MG Clonidine HCl 0.1 mg TID PO 02/12/25 22:00 02/15/25 20:58 0.1 MG Hydrochlorothiazide 25 mg DAILY PO 02/13/25 10:00 02/15/25 09:05 25 MG Acetaminophen/ Hydrocodone Bitart 1 tab QIDP PRN PO 02/12/25 16:00 02/13/25 13:32 1 TAB Metoprolol Succinate 50 mg DAILY PO 02/13/25 10:00 02/15/25 09:04 50 MG Rivaroxaban 15 mg DAILY PO 02/13/25 10:00 02/15/25 09:05 15 MG Sertraline HCl 50 mg DAILY PO 02/13/25 10:00 02/15/25 09:19 50 MG Patient Own Medication 2 cap BID PO 02/12/25 22:00 Folic Acid 1 mg DAILY PO 02/13/25 10:00 02/15/25 09:04 1 MG Lisinopril 10 mg DAILY PO 02/13/25 10:00 02/15/25 09:04 10 MG Patient Own Medication 1 tab DAILY PO 02/13/25 10:00 Patient Own Medication 1 tab HS PO 02/12/25 22:00 Mupirocin 1 applic BID EACHNOSTRI 02/13/25 22:00 02/17/25 22:00 02/15/25 09:19 1 APPLIC Hydromorphone HCl 0.25 mg Q6HP PRN IV 02/15/25 11:30 02/15/25 21:05 0.25 MG objective General: NAD, AAOX3 Chest: lung sequeira clear to auscultation Heart: RRR, no murmur Abdomen: Mild epigastric tenderness to palpation, +BS laboratory and microbiology Laboratory Tests 02/15/25 09:35 Test 02/15/25 09:35 Range/Units Serum Glucose 107 H 74-106 mg/dL Problems(with codes): (1) Acute abdominal pain (2) Non-specific colitis Prognosis A/Plan Patient is being evaluated by Neurology for possible descending neuropathy Recommendations and assessment noted : Problem List Paraplegia, sensory loss in the stomach, lower extremities, incontinence To rule out transfer myelitis To rule out vascular disease in the thoracic spine 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 No high-grade thoracic spinal canal, neural foraminal stenosis. No abnormal thoracic cord enhancement GI ABD PAIN Oral PPI IBD panel pending; panca negative Monitor labs We will continue to monitor patient Possible outpatient follow-up recommended for elective GI procedures once neurologically stabilized Plan discussed with: Other (Aliyah Aquino) LM PERDOMO MD Feb 15, 2025 21:20
[2025-02-16 01:00] VITALS: BP 107/65; PULSE 79; RESP 17; TEMP 98.2; O2SAT 94
[2025-02-16 05:00] VITALS: BP 112/67; PULSE 70; RESP 17; TEMP 97.4; O2SAT 100
[2025-02-16 08:00] VITALS: O2SAT 97
[2025-02-16 09:00] VITALS: BP 105/65; PULSE 75; RESP 18; TEMP 98.8; O2SAT 96
[2025-02-16 13:00] VITALS: BP 143/80; PULSE 80; RESP 20; TEMP 99.5; O2SAT 97
--- NOTE | 2025-02-16 13:25 | DVHPN2 ---
Progress Note - Dictate Date Seen: Feb 16, 2025 Medical Necessity Reason Pt with a Central, PICC or Fol: No Subjective Patient is feeling better, some abdominal cramping and some diarrhea numbness and tingling that radiates from her abdomen down to her toes. b/l leg pain She believes her infection has resolved.Nausea vomiting and incontinence have improved since two weeks ago vital signs Vital Sign Date Time Temp Pulse Resp B/P (MAP) Pulse Ox O2 Delivery O2 Flow Rate FiO2 02/16/25 10:43 80 20 143/80 02/16/25 09:00 98.8 96 98.8 02/16/25 08:00 Room Air* 0 21 Total Intake and Output 02/15/25 02/15/25 02/16/25 15:00 23:00 07:00 Intake Total 50 ml 500 ml 225 ml Balance 50 ml 500 ml 225 ml medications Current Medications Medications Dose Ordered Sig/Shiloh Route Start Time Stop Time Status Last Admin Dose Admin Ondansetron HCl 4 mg Q4HP PRN IV 02/12/25 16:00 02/16/25 11:07 4 MG Docusate Sodium 100 mg BIDPRN PRN PO 02/12/25 16:00 Acetaminophen 650 mg Q6HP PRN PO 02/12/25 16:00 Ceftriaxone Sodium 50 ml @ 100 mls/hr DAILY@09 IV 02/13/25 09:00 02/16/25 09:56 100 MLS/HR Metronidazole 100 ml @ 100 mls/hr Q8HR IV 02/12/25 22:00 02/16/25 06:10 100 MLS/HR Atorvastatin Calcium 20 mg HS PO 02/12/25 22:00 02/15/25 20:57 20 MG Clonidine HCl 0.1 mg TID PO 02/12/25 22:00 02/15/25 20:58 0.1 MG Hydrochlorothiazide 25 mg DAILY PO 02/13/25 10:00 02/16/25 09:56 25 MG Acetaminophen/ Hydrocodone Bitart 1 tab QIDP PRN PO 02/12/25 16:00 02/13/25 13:32 1 TAB Metoprolol Succinate 50 mg DAILY PO 02/13/25 10:00 02/16/25 09:57 50 MG Rivaroxaban 15 mg DAILY PO 02/13/25 10:00 02/16/25 09:56 15 MG Sertraline HCl 50 mg DAILY PO 02/13/25 10:00 02/16/25 10:13 50 MG Patient Own Medication 2 cap BID PO 02/12/25 22:00 Folic Acid 1 mg DAILY PO 02/13/25 10:00 02/16/25 09:56 1 MG Lisinopril 10 mg DAILY PO 02/13/25 10:00 02/16/25 09:57 10 MG Patient Own Medication 1 tab DAILY PO 02/13/25 10:00 Patient Own Medication 1 tab HS PO 02/12/25 22:00 Mupirocin 1 applic BID EACHNOSTRI 02/13/25 22:00 02/17/25 22:00 02/16/25 09:59 1 APPLIC Hydromorphone HCl 0.25 mg Q6HP PRN IV 02/15/25 11:30 02/16/25 10:13 0.25 MG objective General: NAD, AAOX3 Chest: lung sequeira clear to auscultation Heart: RRR, no murmur Abdomen: Mild epigastric tenderness to palpation, +BS laboratory and microbiology Laboratory Tests 02/15/25 09:35 Test 02/15/25 09:35 Range/Units Serum Glucose 107 H 74-106 mg/dL Problems(with codes): (1) Acute abdominal pain (2) Non-specific colitis Prognosis Plan 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
--- NOTE | 2025-02-16 14:02 | DVHDSRES ---
Discharge Summary Date of Admission Resident Creating Document: AGUS VIDAL RESIDENT Feb 12, 2025 at 15:46 Date of Discharge: Feb 16, 2025 Admitting Diagnosis abdominal pain Labs/Diagnostic Data: Laboratory Results Test 02/15/25 09:35 02/13/25 14:25 02/13/25 10:10 02/12/25 18:00 White Blood Count 9.0 10^3/uL (4.4-10.8) Red Blood Count 3.54 10^6/uL (4.0-5.20) Hemoglobin 10.6 g/dL (12.2-16.2) Hematocrit 31.5 % (36.0-46.0) Mean Corpuscular Volume 89.0 fL (80.0-100.0) Mean Corpuscular Hemoglobin 30.0 pg (28.0-32.0) Mean Corpuscular Hemoglobin Concent 33.7 g/dL (32.0-36.0) Red Cell Distribution Width 14.2 % (11.8-14.3) Platelet Count 409 10^3/uL (140-450) Mean Platelet Volume 6.6 fL (6.9-10.8) Neutrophils (%) (Auto) 65.2 % (37.0-80.0) Lymphocytes (%) (Auto) 26.2 % (10.0-50.0) Monocytes (%) (Auto) 6.8 % (0.0-12.0) Eosinophils (%) (Auto) 1.3 % (0.0-7.0) Basophils (%) (Auto) 0.5 % (0.0-2.0) Neutrophils # (Auto) 5.9 10 ^3/uL (1.6-8.6) Lymphocytes # (Auto) 2.3 10 ^3/uL (0.4-5.4) Monocytes # (Auto) 0.6 10 ^3/uL (0-1.3) Eosinophils # (Auto) 0.1 10 ^3/uL (0-0.8) Basophils # (Auto) 0 10 ^3/uL (0-0.2) Nucleated Red Blood Cells 0.0 % Sodium Level 140 mmol/L (136-145) Potassium Level 3.6 mmol/L (3.5-5.1) Chloride Level 103 mmol/L (98-107) Carbon Dioxide Level 28 mmol/L (20-31) Anion Gap 9 (5-15) Blood Urea Nitrogen 6 mg/dL (9-23) Creatinine 1.00 mg/dL (0.550-1.02) Glomerular Filtration Rate Calc 61 mL/min (>90) BUN/Creatinine Ratio 6.0 (10.0-20.0) Serum Glucose 107 mg/dL (74-106) Calcium Level 9.3 mg/dL (8.7-10.4) Vitamin B12 Level 566 pg/mL (211-911) Atypical p-ANCA <1:20 titer (Neg:<1:20) Saccharomyces cerevisiae IgG Ab 59.3 Units (0.0-24.9) Saccharomyces cerevisiae IgA Ab 64.9 Units (0.0-24.9) Hemoglobin A1c 5.4 % A1C (<5.7) Total Bilirubin 0.4 mg/dL (0.2-1.0) Aspartate Amino Transferase (AST) 32 U/L (13-40) Alanine Aminotransferase (ALT) 13 U/L (7-40) Alkaline Phosphatase 118 U/L (46-116) Total Protein 6.4 g/dL (5.7-8.2) Albumin 4.4 g/dL (3.2-4.8) Thyroid Stimulating Hormone (TSH) 2.91 uIU/mL (0.55-4.78) Urine Color Light-yellow (Yellow) Urine Clarity Turbid (Clear) Urine pH 5.0 (5.0-9.0) Urine Specific [place] 1.014 (1.001-1.035) Urine Protein Negative (Negative) Urine Ketones Negative (Negative) Urine Blood Negative /uL (Negative) Urine Nitrite Negative (Negative) Urine Bilirubin Negative (Negative) Urine Urobilinogen Normal mg/dL (Negative) Urine Leukocyte Esterase Trace /uL (Negative) Urine RBC 1 /hpf (0 - 4) Urine Microscopic WBC 4 /HPF (0-5) Urine Squamous Epithelial Cells Few /hpf (<5) Urine Bacteria Few /hpf (None Seen) Urine Hyaline Casts Mod /lpf (0 - 2) Urine Glucose Normal mg/dL (Normal) Other Laboratory Tests 02/15/25 09:35 Brief Hx & Hospital Course: The patient is a 69-year-old female with a complex medical history including hypertension, hyperlipidemia, type 2 diabetes mellitus, pulmonary embolism, myocardial infarction, fibromyalgia, and uterine fibroids. She presented with persistent abdominal pain localized to the epigastric region, accompanied by radiating numbness and tingling extending to the suprapubic and rectal areas. These symptoms have been ongoing for over a month and have progressively worsened since a prior admission to [facility], where she was diagnosed with uterine fibroids. Following discharge, she developed burning epigastric pain, bloating, and progressive sensory deficits in the lower extremities, resulting in bowel incontinence and reliance on adult diapers. She also experienced nausea and vomiting two weeks prior to admission, which has since resolved. On examination, she reported bilateral leg numbness and abdominal pain. 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 Imaging studies including CT of the thoracic and lumbar spine showed no acute fractures but suggested daxz-qf-mhcancal canal stenosis at L3-L4. MRI of the thoracic spine is pending. CT Abdomen/Pelvis revealed colonic diverticulosis, nonobstructing renal calculi, a fibroid uterus, and mild submucosal fatty infiltration of the ascending colon. Stool cultures were obtained due to acute diarrhea and concern for enterocolitis. She was treated with IV fluids, ceftriaxone, metronidazole, Zofran, Tylenol, and Veteran. Her chronic conditions were managed with metoprolol, lisinopril, hydrochlorothiazide, Lipitor, and rivaroxaban for her history of PE. MRSA screening was positive, and mupirocin was initiated. Discharge planning included outpatient follow-up with GI for elective panendoscopy once medically stable. She was discharged in stable condition with instructions to follow up with her primary care provider and at the discharge clinic. All questions were addressed, and she left the hospital accompanied by staff without distress. Physical exam General Appearance: Alert, Oriented X3, Cooperative, mild distress HEENT: Atraumatic, PERRLA Respiratory: Clear to auscultation, Normal air movement Cardiovascular: Regular rate, Normal S1, Normal S2, No murmurs Abdominal: Normal bowel sounds, Soft, Other (C/O epigastric pain) Extremities: No clubbing, No cyanosis, No edema, Normal pulses Skin: No rashes, No breakdown, No significant lesion Neuro: Normal gait, Normal speech, Strength at 5/5 X4 ext Psych/Mental Status: Mental status NL, Mood NL Musculoskeletal Exam: Significant tenderness to palpation in the thoracic and lumbar spine. No joint swelling or deformity. Operations or Procedures ROCEDURE(s): MSTW - THORACIC SPINE WO W REASON: ORDER NUMBER(s): [id number], ACCESSION NUMBER(s): [id number] PROCEDURE: MRI THORACIC SPINE WO W Indication: Myelopathy COMPARISON: None TECHNIQUE: Multiplanar multisequence images of the the thoracic spine with and without contrast. FINDINGS: Thoracic vertebral body heights maintained. Mild multilevel disc space narrowing and desiccation. No abnormal marrow edema. Alignment grossly preserved. Thoracic cord is normal in morphology and signal. No high-grade thoracic spinal canal, neural foraminal stenosis. No abnormal thoracic cord enhancement. No abnormal Thoracic marrow enhancement. 13 mm right renal cyst. IMPRESSION: Mild thoracic degenerative disc disease. No high-grade thoracic spinal canal, neural foraminal stenosis. No abnormal thoracic cord enhancement PROCEDURE(s): LS2CT - LS SPINE WO CONTRAST REASON: r/o stenosis, subacute onset of descendin numbness&weakness ORDER NUMBER(s): [id number], ACCESSION NUMBER(s): [id number] EXAM: CT LS SPINE WO CONTRAST HISTORY: stenosis, subacute onset of descendin numbness weakness COMPARISON: none CTDIvol 24.64 mGy, DLP 877.89 mGy*cm. TECHNIQUE: Multiple axial CT images of the spine were obtained using bone algorithm. Axial and coronal reformatting was done. Bone and soft tissue windows were reviewed. FINDINGS: No evidence of definite acute fracture, spinal dislocation, or significant appearing acute subluxation is seen. Suggestion of uhvm-tr-filgtava canal stenosis at L3-L4. IMPRESSION: No definite CT evidence of acute fracture or dislocation of the bony lumbar spine. Suggestion of cpjf-gl-dkdxtuyb canal stenosis at L3-L4. PROCEDURE(s): TS2CT - THORACIC SPINE WO CONTRAS REASON: descending neuropathy ORDER NUMBER(s): [id number], ACCESSION NUMBER(s): [id number] CT OF THE THORACIC SPINE WITHOUT CONTRAST HISTORY: descending neuropathy Dose: CTDI: 32.42. DLP: 1296.95 COMPARISON: 02/09/2024 TECHNIQUE: Axial images through the thoracic spine were obtained without contrast. Coronal and sagittal reformats were obtained. One or more of the following radiation dose reduction techniques were used for this examination: automated exposure control, adjustment of the mA and/or kV according to patient size, use of iterative reconstruction technique. FINDINGS: 12 rib-bearing thoracic type vertebrae. Mild straightening of the thoracic kyphosis. Vertebral body heights are relatively maintained. No evidence of acute traumatic fractures or spondylolisthesis. Diffuse demineralization. Multilevel minimal posterior disc bulges without significant spinal canal or neural foramina stenosis. The paraspinal muscles unremarkable. Mild gastric wall thickening which may be due to inadequate distention. 1.6 cm right renal cyst. Punctate nonobstructing right renal calculi. IMPRESSION: No evidence of acute traumatic fractures or spondylolisthesis. No significant spinal canal or neural foramina stenosis. If symptoms persist, consider MRI for further evaluation. EDURE(s): ABPL - CT AB PEL WO CON-NO ORAL OR IV REASON: colitis ORDER NUMBER(s): [id number], ACCESSION NUMBER(s): [id number] Exam: CT CT AB PEL WO CON-NO ORAL OR IV History: colitis Comparison Study: None TECHNIQUE: Multidetector CT of the abdomen AND PELVIS without IV contrast. Axial, coronal and sagittal multiplanar reformats were obtained from the axial data set by the technologist. Radiation Dose Information: CT Dose: CTDI volume is 22.29 mGy. Dose-length product is 1193.6 mGy*cm FINDINGS: Bibasilar atelectasis. Partially visualized heart is unremarkable. Liver, spleen, gallbladder, pancreas and adrenal glands are unremarkable. 2.1 cm right renal cyst. Punctate nonobstructing right renal calculi., kidneys, ureters and urinary bladder unremarkable. Fibroid uterus with partially calcified and noncalcified fibroids. Stomach is unremarkable. Small bowel loops are unremarkable. Appendix is not definitely visualized. Colonic diverticulosis without diverticulitis. Small to moderate amount of fecal material within the colon. Minimal submucosal fatty infiltration of the ascending colon. No evidence of intraperitoneal free air or free fluid. No evidence of aortic aneurysm. Mild atherosclerotic calcification of the aorta and bilateral iliacs. No significant lymphadenopathy. Mild subcutaneous fat stranding of the right lateral hip. No evidence of acute osseous abnormalities. IMPRESSION: Mild submucosal fatty infiltration of the ascending colon which may be associated with patient's body habitus with colonic inflammatory bowel disease not completely excluded. Nonobstructing punctate right renal calculi. Small right renal cyst. Colonic diverticulosis without diverticulitis. Small to moderate amount of fecal material within the colon. Fibroid uterus. EDURE(s): CXRP - CHEST PORTABLE REASON: sob ORDER NUMBER(s): [id number], ACCESSION NUMBER(s): [id number] CHEST RADIOGRAPH Indication: sob Technique: Single frontal view of the chest was obtained COMPARISON: None FINDINGS: Lines and Tubes: None Lungs: Clear Pleura: No effusion. No pneumothorax. Cardiomediastinal contours: Unremarkable Bones: Unremarkable IMPRESSION: No acute disease. 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 # Acute diarrhea due to enterocolitis # Essential hypertension # Tobacco dependance # Hyperlipidemia # Type 2 diabetes mellitus Discharge Disposition: Home Discharge Instruct/Medications Diet: Cardiac 2g Na,low cholest Activity: No Restrictions, As Tolerated Follow Up/Referral: pls follow up with pcp pls follow up with GI in the outpatient clinic pls follow up with neurology Scheduled Atorvastatin Calcium (Atorvastatin Calcium), 1 TAB PO HS, (Reported) Clonidine Hydrochloride (Clonidine Hcl), 1 TAB PO TID, (Reported) Epa Ethyl Vania (Vascepa), 2 CAP PO BID, (Reported) Folic Acid (Folic Acid), 1 TAB PO DAILY, (Reported) Hctz (Hydrochlorothiazide), 1 TAB PO DAILY, (Reported) Lisinopril (Lisinopril), 1 TAB PO DAILY, (Reported) Metoprolol Succinate (Metoprolol Succinate Er), 1 TAB PO DAILY, (Reported) Naloxegol Oxalate (Movantik), 1 TAB PO DAILY, (Reported) Rivaroxaban (Xarelto Tablet), 1 TAB PO DAILY, (Reported) Sertraline HCl (Sertraline HCl), 1 TAB PO DAILY, (Reported) Scheduled PRN Hydrocodone-Acetaminophen (Hydrocodone/Acetaminophen 10-325 mg), 1 TAB PO QIDP PRN, (Reported) Ondansetron HCl (Ondansetron Hydrochloride), 1 TAB PO BIDP PRN, (Reported) Suvorexant (Belsomra), 1 TAB PO QHSP PRN, (Reported) Discontinued Medications Hydrocodone-Acetaminophen (Hydrocodone/Acetaminophen 10-325 mg), 1 TAB PO QIDP PRN, (Reported) Discharge Statement: "Patient was advised to return to the ER or call 911 if any headaches, dizziness, shortness of breath, chest pain, abdominal pain, bleeding, fevers, or worsening of medical condition. Patient was counseled about treatment plan, medications, possible side effects, patientverbalized understanding. All questions were answered to the best of my ability. This discharge took greater then 30 minutes in planning, reviewing documentation, counseling the patient, and discussing with other team members." ASSESSMENT ASSESSMENT Assessment # Acute intractable abdominal pain # Diverticulosis # Fibroid uterus # Renal calculi -IV fluid -Abdomen/Pelvis CT: Mild submucosal fatty infiltration of the ascending colon which may be associated with patient's body habitus with colonic inflammatory bowel disease not completely excluded. Nonobstructing punctate right renal calculi. Small right renal cyst. Colonic diverticulosis without diverticulitis. Small to moderate amount of fecal material within the colon. Fibroid uterus. 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 No significant spinal canal or neural foramina stenosis. If symptoms persist, consider MRI for further evaluation. -Lumbar Spine CT: No definite CT evidence of acute fracture or dislocation of the bony lumbar spine. Suggestion of ujzp-nq-sufgegfv canal stenosis at L3-L4. # Acute diarrhea due to enterocolitis -Stool culture # Essential hypertension -Metoprolol -Lisinopril -Hydrochlorithiazide # Tobacco dependance -Chest X-Ray: No acute disease. -recommend cessation # Hyperlipidemia # Type 2 diabetes mellitus -A1C: 5.4, however per patient, she was diagnosed with DM few month ago. # MRSA Screen Final result: Methicillin Resistant S.aureus DNA detected. - Mupirocin Date of Service: Feb 16, 2025 Billing Provider: TAMMI LARSON MD Common Visit Codes: 72553-FAB/OBS DISCH DAY >30min AGUS VIDAL RESIDENT Feb 16, 2025 14:02 TAMMI LARSON MD Feb 18, 2025 18:55
== END 2025-02-16 14:00 | disposition home or self-care (01) | DRG 371 ==
LOC: ER 09:57 → OVERFLOW 15:46 → WEST WING 21:30 → CENTRAL 02-13 15:26
PROVIDERS: ADMIT Internal Medicine Geriatric Medicine; ATTEND Emergency Medicine
DX: A04.9 Bacterial intestinal infection, unspecified (principal); N17.0 Acute kidney failure with tubular necrosis; G82.20 Paraplegia, unspecified; D68.69 Other thrombophilia; I50.9 Heart failure, unspecified; I11.0 Hypertensive heart disease with heart failure; E66.9 Obesity, unspecified; Z68.31 Body mass index [BMI] 31.0-31.9, adult; E11.42 Type 2 diabetes mellitus with diabetic polyneuropathy; K57.30 Diverticulosis of large intestine without perforation or abscess without bleeding; N20.0 Calculus of kidney; D25.9 Leiomyoma of uterus, unspecified; E11.9 Type 2 diabetes mellitus without complications; E78.5 Hyperlipidemia, unspecified; N28.1 Cyst of kidney, acquired; I25.10 Atherosclerotic heart disease of native coronary artery without angina pectoris; F17.200 Nicotine dependence, unspecified, uncomplicated; M48.061 Spinal stenosis, lumbar region without neurogenic claudication; R32 Unspecified urinary incontinence; M79.7 Fibromyalgia; M51.34 Other intervertebral disc degeneration, thoracic region; I25.2 Old myocardial infarction; Z90.49 Acquired absence of other specified parts of digestive tract; Z86.711 Personal history of pulmonary embolism; Z88.5 Allergy status to narcotic agent; Z83.3 Family history of diabetes mellitus; Z82.49 Family history of ischemic heart disease and other diseases of the circulatory system
CPT/HCPCS: 36415; 71045; 72128; 72131; 72157; 74176; 80048; 80053; 81001; 82607; 83036; 84443; 85025; 86256; 86671; 87081; 93005; 97163; G0378; J2405; J3490